=== PATIENT | female | born 1935 | race Caucasian/White ===

== ENCOUNTER 2024-06-10 04:27 | Inpatient (IN) | payer MEDICARE, OTHER, SELFPAY ==
[2024-06-10] VITALS (17 sets, daily range): BP systolic 95–145; BP diastolic 52–86; PULSE 61–65; BMI 22.5; BMI 25.5
--- NOTE | 2024-06-10 02:04 | ED.GENMED ---
History of Present Illness
General
Chief Complaint: Fever
Source: patient, ambulance crew and residential
Exam Limitations: none
Time Seen by Provider: 06/10/24 02:02
Nursing documentation reviewed up to this point in time: agreed with
History of Present Illness
History of Present Illness:
This is an 89-year-old woman, chronic resident of [facility]. She is sent to the ED for evaluation of fever accompanied with urinary frequency, urinary incontinence. Last dose of Tylenol at 7 PM last night.
Nursing staff concerned about mild confusion however patient adamantly denies being confused.
She denies headache, denies neck or back pain, denies abdominal pain, denies cough or shortness of breath, denies chest pain. She does note urinary frequency, dysuria and incontinence which is unusual for her.
She has not had a rash. No falls.
No previous visits to [facility]. She states she has been a resident of [facility] for the past year.
Review of residential records reveals urine culture positive for pansensitive E. coli May 17, 2024. Unclear if she was treated for this UTI. No record of current antibiotic on medication list.
Past History
Past History
ED Past Medical History: CAD, HTN, Hypercholesterolemia, Hypothyroidism and Other (Normal pressure hydrocephalus; UTI)
ED Past Surgical History: Cardiac (Pacemaker) and Orthopedic (Hip replacement)
Phy Exam
Physical Exam
Physical Exam:
GENERAL: 89-year-old woman appears her stated age, awake and alert, pleasant, easily communicative, appears in no acute distress.
EYE: pupils equal and reactive. anicteric
NECK: Supple, nontender, no meningismus, no significant adenopathy.
ENT: oral mucosa is significantly dry. TM clear b/l, nares patent.
CARDIAC: Regular rhythm, mildly tachycardic. no murmur.
LUNGS: Clear breath sounds bilaterally, no acute respiratory distress, no wheezes/rales/rhonchi
ABDOMEN: Soft, nondistended, without focal tenderness, no r/g, no cvat. normoactive BS.
NEUROLOGICAL: Alert and oriented x3, no focal neuro deficits. Motor strength is 5/5 bilaterally.
SKIN: Mildly hot to touch and dry, normal color, skin intact. No rash.
MUSCULOSKELETAL: +1 pretibial edema bilateral lower extremities. Peripheral pulses are full and equal b/l. No palpable tenderness.
PSYCH: Normal and appropriate interaction.
Sepsis
Sepsis Screening
Sepsis Assessment: Sepsis Ruled Out
Sepsis Screen
Sepsis Screen: Sepsis Ruled Out
Date: 06/10/24
Time: 07:04
Course
Orders/Labs/Results
Orders:
Orders
06/10/24 02:02
Cardiac Monitoring- Treatment ONCE
IV Insert/Care/Rem.- Treatment PRN
Straight cath- Treatment ONCE
06/10/24 02:03
0.9% Sodium Chloride 1000 ml [Nss] 1,000 ml IV BOLUS
CR Chest - 2 Views Urgent
Comment:
Reason For Exam: fever
06/10/24 02:09
Complete Blood Count/With Diff Urgent
Comprehensive Metabolic Panel Urgent
Lactic Acid Urgent
Blood Culture Q30M
THA Source: Blood/Venous
Specimen Description:
06/10/24 02:13
Acetaminophen [Tylenol/Feverall] 325 mg RECTAL NOW STA
Acetaminophen [Tylenol/Feverall] 650 mg RECTAL NOW STA
06/10/24 02:20
Urinalysis Reflex To Culture Urgent
Date Specimen was Collected: 06/10/24
Time Specimen was Collected: 02:11
Urine Microscopic Reflex Cult Urgent
Urine Culture Urgent
THA Source: U
Specimen Description:
Date Specimen was Collected: 06/10/24
Time Specimen was Collected: 02:11
06/10/24 02:36
Blood Culture Q30M
THA Source: Blood/Venous
Specimen Description:
06/10/24 03:37
CefTRIAXone [Rocephin] 1,000 mg IV NOW STA
06/10/24 03:47
Add On- LAB Urgent
Tests Added?: CPK
06/10/24 04:02
Admit/Transfer Patient As Directed
Co-Sign Provider:
Level of Care: Inpatient admission
Assign to:: Telemetry
Physician / Group: Zan
Diagnosis: Acute TME, UTI
Reason for Telemetry: Arrhythmia
Date to Stop Telemetry: 06/13/24
Time to Stop Telemetry: 11:00
Reason for Hospitalization: Acute TME, UTI
Expected length of stay greater than two midnights?: Yes
ELOS- Estimated Length of Stay in days: 3
I certify the patient meets the requirements for IP care: Yes
PRN Pain Medication Management As Directed
May give lesser potent ordered pain med per pt: Yes
preference::
Protocol:: Medication orders for pain may be administered in a
manner that supports deferring to patient preference
when the pt is:
- Requesting an ordered lesser potent pain medication.
Least to most potent pain medications are defined
as: acetaminophen < NSAID < tramadol < opioids
(morphine, oxycodone, hydromorphone).
- Requesting a lesser dose of the same medication IF
ORDERED.
- Requesting a less intrusive route of administration
if both routes are prescribed by the provider (PO <
IV).
06/10/24 04:03
Code Status As Directed
Resuscitation Status: Do not resuscitate
Based on pt advanced directive or healthcare POA form: Yes
06/10/24 04:04
DNR Bracelet Application ONCE
06/10/24 04:55
0.9% Sodium Chloride 1000 ml [Nss] 1,000 ml IV 100 mls/hr
Acetaminophen [Tylenol] 650 mg PO Q4HPRN PRN
Polyethylene Glycol Powder [Miralax] 17 grams PO DAILY PRN
06/10/24 04:55
CT Abd/pel Without Iv Or Oral Routine
Comment:
Reason For Exam: Recurrent UTI
Activity As Directed
Activity Level: Ambulate
With Assistance
Bladder Scan As Directed
Follow Bladder Retention/Intermittent Cath Algorithm?: Yes
PRN if no void in __ hours: 6
Frequency: Per Retention Algorithm
If Bladder Scan Result >: 400
then:: Straight cath
I/O [Intake/ Output] As Directed
Frequency: Per unit guidelines
Pneumatic Compression Sleeves As Directed
Type: Knee high
Straight Cath As Directed
Frequency: Per Retention Algorithm
Additional Instructions: straight cath as needed per acute urinary retention algorithm for 24 hrs
Additional Instructions: for bladder scan greater than 400 mL
Vital Signs As Directed
Frequency: Per unit guidelines
Weight As Directed
Frequency: Daily
Oxygen Therapy [O2 Therapy] [RESP] Routine
Titrate/Wean O2 to maintain O2 sat greater than (%): 94
Ot Eval And Treat Routine
PT Consult [Pt Eval And Treat] Routine
Activity Level: Ambulate
With Assistance
DX Deep Vein Thrombosis Video Routine
06/10/24 05:00
Basic Metabolic Panel IN AM
COVID-19 Antigen Urgent
Source: Nasal Swab
Complete Blood Count/No Diff IN AM
LFT [[id number]-[id number]-Fjntqib] IN AM
Influenza A+B Rapid Molecular Urgent
THA Source: Nasal Swab
Specimen Description:
06/10/24 Breakfast
Regular
At Your Request: Full Participation
Levothyroxine [Synthroid] 112 mcg PO DAILY@0600
06/10/24 08:00
Aspirin Chewable [Low Strength Aspirin] 81 mg PO DAILY
Bupropion Regular Release [Wellbutrin Regular Release] 75 mg PO DAILY
FOLic ACID [Folvite] 1 mg PO DAILY
Sennosides [Senokot] 8.6 mg PO DAILY
06/11/24 06:00
CefTRIAXone [Rocephin] 1,000 mg IV Q24H
06/13/24 11:00
DC Protocol for Telemetry ONCE
Abnormal Lab Results
06/10/24 06/10/24 06/10/24
02:07 02:09 02:20
Hct 36.3 L %
(37.0-47.0)
MCV 78.6 L fL
(81.0-99.0)
MCH 26.6 L pg
(27.0-31.0)
RDW 14.7 H %
(11.5-14.5)
Abs Immat Gran (auto) 0.1 H 10^3/uL
(0-0.05)
Absolute Neuts (auto) 7.2 H 10^3/uL
(1.4-6.5)
Absolute Monos (auto) 1.5 H 10^3/uL
(0.1-0.6)
Lymphocytes % 12.0 L %
(20.5-51.1)
Monocytes % 14.6 H %
(1.7-9.3)
BUN 19 H mg/dl
(7-17)
Glucose 109 H mg/dl
(70-99)
AST 253 H U/L
(14-36)
ALT 63 H U/L
(0-35)
Alkaline Phosphatase 128 H U/L
(38-126)
Albumin 3.3 L g/dl
(3.5-5.0)
Ur Occult Blood Reflex 3+ A
(Negative)
Urine Nitrite (Reflex) Positive A
(Negative)
Leukocyte Esterase Rfl 2+ A
(Negative)
Urine WBC (Reflex) >100 A /HPF
(0-5)
Urine Bacteria (Reflex) Many A
(Negative)
Urine Albumin (Reflex) 2+ A
(Neg - Trace)
POC Glucose 105 H mg/dl
(70-99)
06/10/24 02:09
06/10/24 02:09
Vital Signs
Initial and Last Documented VS:
Initial Vital Signs
Pulse Resp BP Pulse Ox
70 16 129/86 94
06/10/24 02:04 06/10/24 02:04 06/10/24 02:04 06/10/24 02:04
Last Documented Vital Signs
Temp Pulse Resp BP Pulse Ox
100.3 F 64 18 95/53 95
06/10/24 03:34 06/10/24 05:45 06/10/24 05:45 06/10/24 05:02 06/10/24 05:45
MDM/Problems Addressed
Differential Diagnosis Includes:
Acute febrile illness. Concern for UTI, sepsis, other consideration is pneumonia.
Will check labs, urinalysis, chest x-ray, blood cultures, lactic acid. Check chest x-ray.
Clinically appears significant dehydrated, dry oral mucosa. Will initiate IV fluids.
*Radiology
Radiology exam reviewed: preliminary read by ED provider (Chest x-ray shows no infiltrate. Scant atelectasis left base)
*Pulse Oximetry
Patient hypoxic: no
*In House Counsel Interpretation
Rate: normal
Interpretation: normal
Rhythm: sinus
*Critical Care Note
Total Time (30-74mins, 75-104mins- exclusive of procedures): Not Applicable
Update Note
Update Note:
06/10/2024 0337 AM
patient noted to be significantly febrile upon arrival. She remains hemodynamically stable. Labs revealed normal white blood cell count. Normal H&H.
Normal lactic acid at 1.2. Normal renal function.
Moderately elevated LFTs, minimally elevated alkaline phosphatase with normal T. bili.
Patient continues to have no abdominal pain, denies back pain.
Urinalysis consistent with UTI, nitrite positive, greater than 100 WBCs and many bacteria.
She has been given rectal Tylenol for fever, IV fluid resuscitation. Will initiate IV Rocephin for UTI.
Due to significant febrile response, concern for SIRS, sepsis will admit to hospitalist service.
ED Attending Note
-
Portions of this chart may have been created with voice recognition software.� Occasional wrong word or��sound alike� substitutions may have occurred due to the inherent limitations of voice recognition software.
Discharge Plan
Departure
Patient Disposition: Admit
Date of Disposition: 06/10/24
Time of Disposition: 03:42
Admit to: Med/Surg
Admit to doctor: Zan
Presentation/result/management discussed w/ accepting MD/DO: Hospitalist
Condition: Fair
Discharge Problem:
fever r/o sepsis, SIRS (systemic inflammatory response syndrome), Urinary tract infection
Interventions
Interventions:
*Risk Screen - Suicide Last Done: 06/10/24 02:04
*General Assessment Last Done: 06/10/24 02:04
*Neglect/Abuse Screening Last Done: 06/10/24 02:04
ED- Fall Risk Assessment Last Done: 06/10/24 02:04
*ED COVID-19 Vaccine History Last Done: 06/10/24 02:04
ED-Female Genitourinary Assessment Last Done: 06/10/24 02:22
ED- Neurological Assessment Last Done: 06/10/24 02:22
ED-Skin Assessment Last Done: 06/10/24 02:22
[2024-06-10 02:09] LABS: Glucose - Point of Care 105 mg/dl (70-99)
[2024-06-10] MEDS: TYLENOL/FEVERALL 325 MG RECTAL (02:15)
[2024-06-10] MEDS: TYLENOL/FEVERALL 650 MG RECTAL (02:16)
[2024-06-10 02:18] LABS: % Basophils 0.3 % (0-2); % Eosinophils 0.1 % (0-6); % Immature Granulocytes 0.5 % (0-0.5); % Monocytes 14.6 % (1.7-9.3); % Neutrophils 72.5 % (42.2-75.2); Absolute Immature Granulocytes 0.1 10^3/uL (0-0.05); Absolute Lymphocytes 1.2 10^3/uL (1.2-3.4); Absolute Monocytes 1.5 10^3/uL (0.1-0.6); Absolute Neutrophils 7.2 10^3/uL (1.4-6.5); Hematocrit 36.3 % (37.0-47.0); Hemoglobin 12.3 g/dL (12.0-16.0); Mean Corp Hgb Conc. 33.9 g/dL (33.0-37.0); Mean Corpuscular Hgb 26.6 pg (27.0-31.0); Mean Corpuscular Volume 78.6 fL (81.0-99.0); Mean Platelet Volume 9.7 fL (7.4-10.4); Nucleated Red Blood Cells % 0 %; Platelet Count 178 10^3/uL (130-400); Red Blood Cell Count 4.62 10^6/uL (4.20-5.40); Red Cell Dist. Width 14.7 % (11.5-14.5); White Blood Cell Count 9.9 10^3/uL (4.8-10.8)
[2024-06-10] MEDS: NSS 1000 IV ×4 (02:18→14:21)
[2024-06-10 02:32] LABS: Urine Albumin 2+ (Neg - Trace); Urine Bilirubin Negative (Negative); Urine Color Yellow; Urine Glucose Negative (Negative); Urine Ketone Negative (Negative); Urine Leukocyte 2+ (Negative); Urine Nitrite Positive (Negative); Urine Occult Blood 3+ (Negative); Urine Specific Gravity 1.015 (<1.030); Urine Urobilinogen Negative (Neg - 1+)
[2024-06-10 02:33] LABS: Urine Character Very Cloudy (Clear)
[2024-06-10 02:37] LABS: ALT (SGPT) 63 U/L (0-35); AST (SGOT) 253 U/L (14-36); Albumin 3.3 g/dl (3.5-5.0); Alkaline Phosphatase 128 U/L (38-126); Blood Urea Nitrogen 19 mg/dl (7-17); Calcium 8.6 mg/dl (8.4-10.2); Carbon Dioxide 23 mmol/L (22-30); Chloride 100 mmol/L (98-107); Estimated Creatinine Clearance 37 ml/min; Glucose 109 mg/dl (70-99); Potassium 4.1 mmol/L (3.5-5.1); Sodium 135 mmol/L (135-145); Total Protein 6.3 g/dl (6.3-8.2); eGFR 53.85
[2024-06-10 02:41] LABS: Urine Bacteria Many (Negative); Urine White Cell >100 /HPF (0-5)
[2024-06-10 02:42] LABS: Lactic Acid 1.2 mmol/L (0.7-2.0)
--- NOTE | 2024-06-10 04:06 | HPS.HSE ---
Family Physician
-
Family Physician: Ubaldo Aguilar
Chief Complaint
-
Confusion, Fever
History of Present Illness
Patient is an 89y F with PMH significant for hypertension, hypothyroidism and overactive bladder who presents to ED from local [place] for evaluation of fever, urinary incontinence and confusion. History obtained from patient, ED staff and review of
[facility] record. Patient was reportedly noted by [facility] staff to be confused this evening - typically she is AA and O x 3. Recent labs from [place] include UA and culture dated 05/24 which was positive for E coli UTI. There are no current antibiotics on her MAR
- though it is likely that she was treated for this result at that time.
On arrival to the ED, patient was noted to have fever to 103.9. She was reportedly not confused for ED staff at that time.
At the time of my examination, patient is sleeping comfortable.
Upon waking from sleep, she was alert and conversant, but was unable to recall events which led to her hospitalization.
Patient admits to urinary frequency and dysuria - but states that these are chronic issues.
She denies any new complaints including pain, dyspnea, cough, N/V/D, etc.
Medical History
Past Medical History
Past Medical History: Reports Other
Additional Past Medical History:
ASCVD
CHF - Unknown Type
Hypertension
Hypothyroidism
NPH
Overactive Bladder
Anxiety / Depression
Past Surgical History: Reports Other
Additional Past Surgical History:
Left JOSE R
PPM Placement
Social History
Tobacco: Former Smoker (Quit smoking many years ago.)
Alcohol: None
Drug: None
Family History
Family History: Not pertinent
Allergies / Home Medications
Allergies reflects when Allergies were last updated in [facility].
Home Medications with original date entered in [facility]
Allergy/Medication List:
Allergies
Allergy/AdvReac Type Severity Reaction Status Date / Time
No Known Allergies Allergy Unverified 06/10/24 02:03
Home Medications
acetaminophen 325 mg tablet (Tylenol) 650 mg PO Q4H PRN fever 06/10/24
aspirin 81 mg chewable tablet 81 mg PO DAILY 06/10/24
bisacodyl 10 mg rectal suppository 10 mg [place] DAILY PRN constipation 06/10/24
bupropion HCl 75 mg tablet 75 mg PO DAILY 06/10/24
cyanocobalamin (vitamin B-12) 100 mcg/mL injection syringe 1,000 mcg MONTHLY 06/10/24
folic acid 1 mg tablet 1 mg PO DAILY 06/10/24
furosemide 40 mg tablet (Lasix) 40 mg PO DAILY 06/10/24
glucosamine-chondroitin 500 mg-400 mg tablet 1 tab PO DAILY 06/10/24
levothyroxine 112 mcg tablet (Synthroid) 112 mcg PO DAILY 06/10/24
losartan 25 mg tablet (Cozaar) 25 mg PO DAILY 06/10/24
magnesium hydroxide 400 mg/5 mL oral suspension (Milk of Magnesia) 400 mg PO DAILY PRN constipation 06/10/24
multivitamin 1 tab PO DAILY 06/10/24
oxybutynin chloride 10 mg tablet,extended release 24 hr 10 mg PO DAILY 06/10/24
polyethylene glycol 3350 17 gram oral powder packet (Miralax) 17 g PO DAILY 06/10/24
sennosides 8.6 mg tablet (senna) 8.6 mg PO DAILY 06/10/24
Review of Systems
-
History Source: Patient
A 12 point ROS was completed and negative except as noted: Yes
Constitutional: Reports Fatigue
EENT: Denies Sore Throat
Respiratory: Denies Cough or Trouble Breathing
Cardiac: Denies Chest Pain or Palpitations
Abdomen/GI: Denies Abdominal Pain, Nausea, Vomiting or Diarrhea
: Reports Dysuria, Frequency, Incontinence and Urgency; Denies Bleeding
Musculoskeletal: Denies Joint Pain or Edema
Neurological: Denies Dizzy or Headache
Psych: Denies Depression or Anxiety
Physical Exam
Vital Signs
Vital Signs
Temp Pulse Resp BP Pulse Ox
100.3 F 67 21 103/56 91
06/10/24 03:34 06/10/24 03:30 06/10/24 03:30 06/10/24 03:30 06/10/24 03:30
Physical Exam
General: Other (89y F in no acute distress.)
HEENT: Moist mucous membranes and PERRLA
Respiratory: Clear; No Wheezes, Rales or Rhonchi
Cardiac: S1/S2 and Regular Rhythm; No Murmur
GI: Soft, Non Tender, Non Distended and Normal Bowel Sounds
Musculoskeletal: No Clubbing, No Cyanosis and Other (Trace LE edema)
Neuro: Awake, Alert and Nonfocal/grossly intact
Psych: No Agitated
Laboratory Results
-
06/10/24 02:09
06/10/24 02:09
Laboratory Results
Lactic Acid 1.2 mmol/L (0.7-2.0) 06/10/24 02:09
Total Bilirubin 1.0 mg/dl (0.2-1.3) 06/10/24 02:09
AST 253 U/L (14-36) H 06/10/24 02:09
ALT 63 U/L (0-35) H 06/10/24 02:09
Alkaline Phosphatase 128 U/L (38-126) H 06/10/24 02:09
Impression/Plan
-
A/P: Patient is an 89y F with PMH significant for hypertension and hypothyroidism who presents to ED from local [place] for evaluation of urinary incontinence, fever and confusion.
UTI / Fever
- Admit for further evaluation and treatment.
- Patient presents with fever to 103.9 and UA suggestive of infection.
- She does endorse urinary complaints - but has documented history of OAB and tells me that complaints are chronic.
- Would check other sources (COVID, Flu, etc) for completeness.
- IV ceftriaxone for now pending culture data.
- Check CT for evidence of stone, etc given recent / recurrent infection (E coli UTI on 05/24/24).
- Follow for clinical improvement.
Acute TME
- Likely secondary to acute febrile illness (see below).
- NH staff report is that patient is typically fully oriented.
- Follow for clinical improvement coincident with treatment of infection, etc.
Abnormal LFTs
- Patient with abnormal LFTs in AST >> ALT pattern.
- Check CPK for evidence of muscle breakdown.
- Follow for changes in labs, new symptoms, etc.
- CT A/P as noted above.
ASCVD
Chronic HF - Unknown Type
- Stable. No chest pain, dyspnea, etc.
- Patient does not appear grossly volume overloaded.
- Hold Lasix for now.
- Gentle IVFs overnight.
- Follow I/Os, weights, etc.
- Continue ASA.
Benign Hypertension
- BP marginal in the ED.
- Will hold losartan (and Lasix) acutely.
- Follow for changes and resume usual meds when appropriate.
Hypothyroidism
- Continue current T4 supplementation.
OAB
- Hold oxybutynin.
DVT Prophylaxis: SCDs
Code Status: DNR
[2024-06-10] MEDS: ROCEPHIN 1000 MG IV (04:52)
[2024-06-10 05:09] LABS: Hematocrit 33.2 % (37.0-47.0); Hemoglobin 11.3 g/dL (12.0-16.0); Mean Corpuscular Volume 79.4 fL (81.0-99.0); Mean Platelet Volume 9.7 fL (7.4-10.4); Platelet Count 154 10^3/uL (130-400); Red Blood Cell Count 4.18 10^6/uL (4.20-5.40); Red Cell Dist. Width 14.6 % (11.5-14.5); White Blood Cell Count 8.8 10^3/uL (4.8-10.8)
[2024-06-10 05:27] LABS: ALT (SGPT) 56 U/L (0-35); AST (SGOT) 198 U/L (14-36); Albumin 2.7 g/dl (3.5-5.0); Alkaline Phosphatase 115 U/L (38-126); Blood Urea Nitrogen 18 mg/dl (7-17); Calcium 8.1 mg/dl (8.4-10.2); Carbon Dioxide 21 mmol/L (22-30); Chloride 104 mmol/L (98-107); Direct Bilirubin 0.3 mg/dl (0.0-0.4); Estimated Creatinine Clearance 41 ml/min; Glucose 107 mg/dl (70-99); Potassium 3.5 mmol/L (3.5-5.1); Sodium 136 mmol/L (135-145); Total Bilirubin 0.6 mg/dl (0.2-1.3); Total Protein 5.5 g/dl (6.3-8.2); eGFR > 60.00
[2024-06-10 05:30] LABS: COVID-19 Antigen Negative (Negative)
[2024-06-10] MEDS: SYNTHROID 112 MCG PO (05:41)
[2024-06-10] MEDS: SENOKOT 8.6 MG PO (07:54)
[2024-06-10] MEDS: FOLVITE 1 MG PO (07:54)
[2024-06-10] MEDS: LOW STRENGTH ASPIRIN 81 MG PO (07:54)
[2024-06-10] MEDS: TYLENOL 650 MG PO (07:57)
[2024-06-10 08:04] LABS: Creatine Phosphokinase 7881 U/L (30-135)
[2024-06-10] MEDS: WELLBUTRIN REGULAR RELEASE 75 MG PO (10:32)
--- NOTE | 2024-06-10 13:15 | W.PN.HOSP.TC ---
Today's Communication/Plan
-
Continue antibiotics
Await cultures
IV fluids
Trend CPK
PT/OT
Assessment / Plan
Assessment / Plan
Gen-AAOx3, NAD
HEENT-NC, AT, anicteric, clear oral mm
Neck-supple
CV-reg, no M, +S1/S2
Lungs-clear B/L
Abd-soft, NT, ND
Ext-no edema
Musculoskeletal-no cyanosis, clubbing
Skin-warm and dry
Neuro-grossly non-focal
Psych-calm, cooperative
UTI -appears uncomplicated. Fever resolved. WBC count normal. CT reviewed, no stones. Continue IV ceftriaxone pending culture results.
Patient admits to frequent UTIs. Recommend outpatient urology follow-up.
Acute TME - Likely secondary to acute febrile illness (see below).
- NH staff report is that patient is typically fully oriented. No signs of confusion currently.
Elevated transaminases -check GGT.
Acute nontraumatic rhabdomyolysis -CPK 7881. IV fluids, repeat labs tomorrow. Etiology possibly due to limited mobility.
ASCVD
Chronic HF - Unknown Type. Looks euvolemic. Lasix held on admission due to hypotension. Can likely resume tomorrow.
Essential hypertension
- BP marginal in the ED.
- Will hold losartan (and Lasix) acutely.
- Follow for changes and resume usual meds when appropriate.
Hypothyroidism -continue levothyroxine.
OAB - Hold oxybutynin in setting of UTI.
DVT Prophylaxis: SCDs
Code Status: DNR
Dispo -discharge back to alf when medically stable.
Anticipated Discharge: 24 - 48 hours
Subjective/Interval History
-
Date of Service: June 10, 2024
Patient seen and examined. No complaints currently.
Objective Data
-
Labs:
Laboratory Results
06/10/24 06/10/24
02:09 05:00
WBC 9.9 8.8
Hgb 12.3 11.3 L
Hct 36.3 L 33.2 L
Plt Count 178 154
Sodium 135 136
Potassium 4.1 3.5
Chloride 100 104
Carbon Dioxide 23 21 L
BUN 19 H 18 H
Creatinine 1.0 0.9
Glucose 109 H 107 H
Calcium 8.6 8.1 L
Total Bilirubin 1.0 0.6
AST 253 H 198 H
ALT 63 H 56 H
Alkaline Phosphatase 128 H 115
Vital Signs:
Vital Signs
Temp Pulse Resp BP Pulse Ox
97.8 F 64 18 114/60 98
06/10/24 13:08 06/10/24 13:08 06/10/24 13:08 06/10/24 13:08 06/10/24 13:08
Review of Systems
-
History Source: Patient
All other systems: Reviewed and negative
[2024-06-10] MEDS: KCL 20 MEQ PO (13:53)
[2024-06-10 13:58] LABS: GGTP 37 U/L (12-43)
--- NOTE | 2024-06-10 17:54 | PTCARENOTE ---
Received patient awake and alert, forgetful. Insisted her eyeglasses were lost, I called the assisted and was told they were in her room at the facility. Out of bed max assist 2 to bed side commode. No c/o pain . Able to move herself around
in the bed. Skin intact. Call gar in reach , appetite 100%
[2024-06-11] MEDS: NSS 1000 IV (02:04)
[2024-06-11 03:36] VITALS: BP 139/71
[2024-06-11] MEDS: SYNTHROID 112 MCG PO (05:06)
[2024-06-11] MEDS: ROCEPHIN 1000 MG IV (05:07)
[2024-06-11] MEDS: STERILE WATER FOR INJECTION 10 ML IV (05:09)
[2024-06-11 05:47] VITALS: BMI 25.0
[2024-06-11 07:03] LABS: ALT (SGPT) 58 U/L (0-35); AST (SGOT) 136 U/L (14-36); Albumin 2.6 g/dl (3.5-5.0); Alkaline Phosphatase 123 U/L (38-126); Blood Urea Nitrogen 12 mg/dl (7-17); Calcium 8.1 mg/dl (8.4-10.2); Carbon Dioxide 21 mmol/L (22-30); Chloride 106 mmol/L (98-107); Estimated Creatinine Clearance 50 ml/min; Glucose 92 mg/dl (70-99); Potassium 4.1 mmol/L (3.5-5.1); Sodium 136 mmol/L (135-145); Total Bilirubin 0.3 mg/dl (0.2-1.3); Total Protein 5.3 g/dl (6.3-8.2); eGFR > 60.00
[2024-06-11 07:12] LABS: Creatine Phosphokinase 2751 U/L (30-135)
[2024-06-11 07:59] VITALS: BP 127/63
[2024-06-11] MEDS: WELLBUTRIN REGULAR RELEASE 75 MG PO (08:36)
[2024-06-11] MEDS: LOW STRENGTH ASPIRIN 81 MG PO (08:36)
[2024-06-11] MEDS: LASIX 40 MG PO (08:36)
[2024-06-11] MEDS: SENOKOT PO (08:37)
[2024-06-11] MEDS: KCL 20 MEQ PO (08:37)
[2024-06-11] MEDS: FOLVITE 1 MG PO (08:38)
--- NOTE | 2024-06-11 10:41 | W.PN.HOSP.TC ---
Today's Communication/Plan
-
Continue antibiotics
Await cultures
Assessment / Plan
Assessment / Plan
Gen-AAOx3, NAD
HEENT-NC, AT, anicteric, clear oral mm
Neck-supple
CV-reg, no M, +S1/S2
Lungs-clear B/L
Abd-soft, NT, ND
Ext-no edema
Musculoskeletal-no cyanosis, clubbing
Skin-warm and dry
Neuro-grossly non-focal
Psych-calm, cooperative
UTI with bacteremia - Fever resolved. WBC count normal. CT reviewed, no stones. 1 out of 2 blood cultures noted to have gram-negative bacilli. Urine culture pending. Continue IV ceftriaxone pending final culture results.
Patient admits to frequent UTIs. Recommend outpatient urology follow-up.
Acute TME - Likely secondary to acute febrile illness (see below).
- [facility] staff report is that patient is typically fully oriented. No signs of confusion currently.
Elevated transaminases -likely due to rhabdomyolysis. GGT normal. Transaminases trending down.
Acute nontraumatic rhabdomyolysis -CPK trending down. Etiology possibly due to limited mobility. Nursing reports good oral fluid intake, can stop further IV fluids. Recheck CPK in the morning.
ASCVD
Chronic HF - Unknown Type. Looks euvolemic. Lasix resumed.
Essential hypertension -blood pressure low on admission, now improved. Losartan on hold.
Hypothyroidism -continue levothyroxine.
OAB - Hold oxybutynin in setting of UTI.
DVT Prophylaxis: SCDs
Code Status: DNR
Dispo -discharge back to group home when medically stable.
Anticipated Discharge: 24 - 48 hours
Subjective/Interval History
-
Date of Service: June 11, 2024
Patient seen and examined. Feeling better. No complaints. Mild diarrhea.
Objective Data
-
Labs:
Laboratory Results
06/11/24
05:55
Sodium 136
Potassium 4.1
Chloride 106
Carbon Dioxide 21 L
BUN 12
Creatinine 0.7
Glucose 92
Calcium 8.1 L
Total Bilirubin 0.3
AST 136 H
ALT 58 H
Alkaline Phosphatase 123
Vital Signs:
Vital Signs
Temp Pulse Resp BP Pulse Ox
98.6 F 64 18 127/63 96
06/11/24 07:59 06/11/24 07:59 06/11/24 07:59 06/11/24 07:59 06/11/24 07:59
I&O
06/10/24 06/11/24 06/12/24
06:59 06:59 06:59
Intake Total 1999
Balance 1999
Review of Systems
-
History Source: Patient
All other systems: Reviewed and negative
[2024-06-11 11:05] VITALS: BP 117/64
--- NOTE | 2024-06-11 12:39 | CM ---
visual display manager reviewed patient's chart and met with patient and patient resides at [facility], patient requires assist with adl's and used a walker with ambulation, patient's plan is to return to [facility] when stable.
PCP: Dr. Aguilar
[facility]
Report [phone]

Plan; Patient to return to [facility] when stable.
[2024-06-11 15:23] VITALS: BP 133/60
[2024-06-11 19:52] VITALS: BP 113/59
[2024-06-11 23:30] VITALS: BP 135/76
[2024-06-12] MEDS: ROBITUSSIN DM 5 ML PO (00:24)
[2024-06-12 03:21] VITALS: BP 139/67
[2024-06-12] MEDS: ROCEPHIN 1000 MG IV (05:41)
[2024-06-12] MEDS: SYNTHROID 112 MCG PO (05:41)
[2024-06-12] MEDS: STERILE WATER FOR INJECTION 10 ML IV (05:41)
[2024-06-12 05:49] VITALS: BMI 24.7
[2024-06-12 06:00] VITALS: BMI 24.7
[2024-06-12 07:40] VITALS: BP 151/88
[2024-06-12] MEDS: WELLBUTRIN REGULAR RELEASE 75 MG PO (08:34)
[2024-06-12] MEDS: LOW STRENGTH ASPIRIN 81 MG PO (08:35)
[2024-06-12] MEDS: LASIX 40 MG PO (08:35)
[2024-06-12] MEDS: FOLVITE 1 MG PO (08:35)
[2024-06-12] MEDS: KCL 20 MEQ PO (08:35)
[2024-06-12] MEDS: SENOKOT 8.6 MG PO (08:35)
[2024-06-12 09:21] LABS: Creatine Phosphokinase 703 U/L (30-135)
[2024-06-12 11:15] VITALS: BP 126/68
--- NOTE | 2024-06-12 12:17 | W.PN.HOSP.TC ---
Addendum entered and electronically signed by Asif Xiong MD 06/12/24 16:32:
sepsis secondary to UTI/pyelo
Original Note:
Today's Communication/Plan
-
DC to [facility] when bed available
Assessment / Plan
Assessment / Plan
Physical Exam
NAD, sitting in bedside chair, just finished brushing
Scleral anicteric
Moist mucous membranes
CTA bilateral
Normal S1-S2 no murmurs
Soft nontender nondistended bowel sounds active
No peripheral pitting edema
Moves extremities spontaneously
AAOx3
Assessment and Plan
E. coli bacteremia secondary to UTI
-On Rocephin which is sensitive to cefazolin which is a first generation cephalosporin. Sensitive to Augmentin therefore we will plan to discharge home on 10-day course to complete a total of 13 to 14 days of antibiotics altogether
-Will need outpatient urology follow-up
Rhabdo
-CK downtrendning
-Without symptoms of muscle pain/myalgias
Acute TME
-Resovled
HTN
-Continue antihypertensives
Transaminitis
-Related to rhabdo
-Improving as expected
DCT ppx
-SCX
DC to [facility].
Anticipated Discharge: Within 24 hours
Subjective/Interval History
-
Date of Service: June 12, 2024
seen and examined. no new complaints. no acute overnight events
sitting in bedside chair
Objective Data
-
Vital Signs:
Vital Signs
Temp Pulse Resp BP Pulse Ox
97.7 F 62 16 126/68 95
06/12/24 11:15 06/12/24 11:15 06/12/24 11:15 06/12/24 11:15 06/12/24 11:15
I&O
06/11/24 06/12/24 06/13/24
06:59 06:59 06:59
Intake Total 1999
Balance 1999
--- NOTE | 2024-06-12 12:27 | W.DCSUMMARY ---
Discharge Summary
Discharge Data
Date of Admission: 06/10/24
Date of Discharge: 06/12/24
-
Pending Results: No
Hospital Course
89y F with PMH significant for hypertension, hypothyroidism and overactive bladder presented from [facility] with fever urinary continence and confusion. Found to have a coli UTI that led to bacteremia. Was started on
antibiotics narrowed to Rocephin and discharged on Augmentin per urine sensitivities. Will need outpatient urology follow-up.
Discharge Plan
-
Patient Disposition: Long-Term/SNF
Discharge Diagnosis/Procedures: E. coli UTI complicated by bacteremia
Past medical history hypertension, hypothyroidism, overactive bladder
Condition: Good
Diet: No restrictions
Activity: With assistance and As tolerated
Additional Activity: With wheelchair
Moderate medical assistant cardiology
Driving Restrictions: No driving
Activity Restrictions/Additional Instructions:
CTAP
IMPRESSION:
No hydronephrosis. No renal calculi.
The urinary bladder is mildly distended.
Moderate rectal and colonic stool burden.
Fat-containing right inguinal hernia.
Referrals:
Ubaldo Aguilar DO [Family Provider] -
Augustine Yeager Jr., MD [Active] - in two to three weeks
Prescriptions:
New
amoxicillin-pot clavulanate [Augmentin] 500-125 mg tablet
1 tab PO BID 10 Days Qty: 20 0RF
Continued
multivitamin Tablet
1 tab PO DAILY
furosemide [Lasix] 40 mg Tablet
40 mg PO DAILY
sennosides [senna] 8.6 mg Tablet
17.2 mg PO DAILY
acetaminophen [Tylenol] 325 mg Tablet
650 mg PO Q4HPRN PRN (Reason: mild pain/temp>100)
polyethylene glycol 3350 [Miralax] 17 gram Powder In Packet
17 g PO DAILY
oxybutynin chloride 10 mg Tablet Extended Release 24hr
10 mg PO DAILY
magnesium hydroxide [Milk of Magnesia] 400 mg/5 mL Suspension
30 ml PO HSPRN PRN (Reason: if no bm in 3 days)
bisacodyl 10 mg Suppository
10 mg OR DAILYPRN PRN (Reason: if no results for MOM)
losartan [Cozaar] 25 mg Tablet
25 mg PO DAILY
bupropion HCl 75 mg Tablet
75 mg PO DAILY
aspirin 81 mg Tablet,Chewable
81 mg PO DAILY
folic acid 1 mg Tablet
1 mg PO DAILY
glucosamine-chondroitin 500-400 mg Tablet
1 tab PO DAILY
levothyroxine [Synthroid] 112 mcg Tablet
112 mcg PO DAILY
cyanocobalamin (vitamin B-12) 1,000 mcg/mL solution
1,000 mcg IM MONTHLY
Rx Instructions:
inject 1 dose IM monthly on the 16th of each month
diclofenac sodium [Arthritis Pain (diclofenac)] 1 % Gel
1 ea TOPICAL BID
Discharge Orders:
Discharge Patient (As Directed); Ordered 06/12/24
Ordered By: Asif Xiong
Discharge Date and Time
Print Language: MONGOLIAN
--- NOTE | 2024-06-12 12:54 | CM ---
Pt medically stable to d/c back to [facility] care at [facility] today
CM attempted call to Kyar/[facility] to inform, left vm and text message
Attempted call to pt's niece to inform of d/c, left vm
Ambulance transport arranged for 4:30 pm
IMM reviewed, pt given copy. Copy placed in chart
Per PT/OT, no skilled needs. Would benefit from home PT
[facility]-LTC
Report: [phone]

Plan: Return to [facility] via ambulance
[2024-06-12 15:00] VITALS: BP 137/66
--- NOTE | 2024-06-12 16:01 | PN.CDI ---
CDI
- -
CDI:
Physician Documentation Request
Admit Date: 06/10/24 04:27
Dear Doctor Tyrese,
Clinical Indicators:
Patient admitted with UTI; presented with TME.
06/12 PN, 'E. coli bacteremia secondary to UTI'
Temp on admission:
06/10/24
02:11
Temp 103.9 F H
RR trend on admission:
06/10/24
02:45 06/10/24
03:00 06/10/24
03:45
Resp Rate 21 25 22
06/10/24
04:00 06/10/24
04:30 06/10/24
05:30
Resp Rate 30 23 31
Please clarify which of the following most accurately describes the status of the patient's infection:
Sepsis, POA
- Systemic manifestations of infection, with 2 or more SIRS criteria which include:
- Fever >100.4 degrees F or hypothermia < 96.8 degrees F
- Leukocytosis - WBC > 12,000 or leukopenia - WBC < 4,000 or > 10% bands
- Tachycardia > 90 beats per minute
- Tachypnea - RR > 20 breaths per minute or PaCO2 , 32mmHg
Source: Merck Manual 2013
Severe Sepsis, POA
- Sepsis with associated acute organ dysfunction, such as TME
- Documentation should indicate the association between the sepsis and the organ dysfunction
UTI with Bacteremia only
- Abnormal lab finding only, does not indicate systemic illness
Other, please specify
Use of terms such as suspected, likely, concern for, or probable (associated with a specific diagnosis that is being evaluated, monitored, or treated as if it exists) are acceptable and can be coded in the inpatient setting, when documented at the
time of discharge.
Thank you,
Neda Verdugo RN BSN
CDI Specialist
available via tiger text
Please use your independent medical judgment in providing your response.
== END 2024-06-12 17:43 | DRG 871 ==
LOC: 4 WEST ACU 04:27
PROVIDERS: Hospitalist; ADMITTING PHYSICIAN Hospitalist; ATTENDING PHYSICIAN Hospitalist; EMERGENCY PHYSICIAN Emergency Medicine; FAMILY PHYSICIAN Internal Medicine
DX: A41.51 Sepsis due to Escherichia coli [E. coli] (principal); G92.8 Other toxic encephalopathy; N39.0 Urinary tract infection, site not specified; G91.2 (Idiopathic) normal pressure hydrocephalus; M62.82 Rhabdomyolysis; E03.9 Hypothyroidism, unspecified; N32.81 Overactive bladder; I11.0 Hypertensive heart disease with heart failure; I50.9 Heart failure, unspecified; I25.10 Atherosclerotic heart disease of native coronary artery without angina pectoris; F32.A Depression, unspecified; F41.9 Anxiety disorder, unspecified; Z87.891 Personal history of nicotine dependence; Z79.82 Long term (current) use of aspirin; Z66 Do not resuscitate; K40.90 Unilateral inguinal hernia, without obstruction or gangrene, not specified as recurrent; Z79.890 Hormone replacement therapy; M19.90 Unspecified osteoarthritis, unspecified site; E78.00 Pure hypercholesterolemia, unspecified; Z87.440 Personal history of urinary (tract) infections; Z95.0 Presence of cardiac pacemaker; Z96.649 Presence of unspecified artificial hip joint; Z11.52 Encounter for screening for COVID-19
CPT/HCPCS: 71046; 74176; 80048; 80053; 80076; 81003; 81015; 82550; 82962; 82977; 83605; 85025; 85027; 87040; 87077; 87086; 87149; 87186; 87205; 87502; 87811; 96361; 96374; 99285

== ENCOUNTER 2024-08-04 10:43 | Inpatient (IN) | payer MEDICARE, OTHER, SELFPAY ==
[2024-08-04] VITALS (14 sets, daily range): BP systolic 94–132; BP diastolic 52–104; PULSE 65; O2SAT 92; BMI 25.8; BMI 22.1
[2024-08-04 07:34] LABS: % Basophils 0.2 % (0-2); % Eosinophils 2.7 % (0-6); % Immature Granulocytes 0.9 % (0-0.5); % Lymphocytes 8.9 % (20.5-51.1); % Monocytes 7.6 % (1.7-9.3); % Neutrophils 79.7 % (42.2-75.2); Absolute Eosinophils 0.2 10^3/uL (0-0.7); Absolute Immature Granulocytes 0.1 10^3/uL (0-0.05); Absolute Lymphocytes 0.5 10^3/uL (1.2-3.4); Absolute Monocytes 0.4 10^3/uL (0.1-0.6); Absolute Neutrophils 4.4 10^3/uL (1.4-6.5); Hematocrit 35.4 % (37.0-47.0); Hemoglobin 11.9 g/dL (12.0-16.0); Mean Corp Hgb Conc. 33.6 g/dL (33.0-37.0); Mean Corpuscular Hgb 26.7 pg (27.0-31.0); Mean Corpuscular Volume 79.4 fL (81.0-99.0); Mean Platelet Volume 10.1 fL (7.4-10.4); Nucleated Red Blood Cells % 0 %; Platelet Count 144 10^3/uL (130-400); Red Blood Cell Count 4.46 10^6/uL (4.20-5.40); Red Cell Dist. Width 15.7 % (11.5-14.5); White Blood Cell Count 5.5 10^3/uL (4.8-10.8)
[2024-08-04 07:47] LABS: ALT (SGPT) 12 U/L (0-35); AST (SGOT) 24 U/L (14-36); Albumin 3.4 g/dl (3.5-5.0); Alkaline Phosphatase 97 U/L (38-126); Blood Urea Nitrogen 13 mg/dl (7-17); Calcium 8.5 mg/dl (8.4-10.2); Carbon Dioxide 20 mmol/L (22-30); Chloride 102 mmol/L (98-107); Estimated Creatinine Clearance 25 ml/min; Glucose 94 mg/dl (70-99); Lactic Acid 0.9 mmol/L (0.7-2.0); Potassium 4.2 mmol/L (3.5-5.1); Sodium 133 mmol/L (135-145); Total Bilirubin 0.3 mg/dl (0.2-1.3); Total Protein 6.2 g/dl (6.3-8.2); eGFR 43.27
[2024-08-04 07:51] LABS: COVID-19 Antigen Negative (Negative)
[2024-08-04] MEDS: NSS 1000 IV (08:06)
--- NOTE | 2024-08-04 08:09 | ED.GENMED ---
History of Present Illness
General
Chief Complaint: Fall
Source: patient, longterm and longterm records
Time Seen by Provider: 08/04/24 07:38
History of Present Illness
History of Present Illness:
pt is a 89 y/o F with h/o CHF, CAD, HTN, HLD, pacer
says she had mechanical slip and fall out of bed this morning x 2
she says she wasn't injured and wasn't on the ground long, 'just a few minutes.' this morning
she was helped back up by staff and then fell again
she was found to be febrile at 530 am and was given tylenol. she has no pain. she has been coughing which is new the past ew days.
also on bactri since 07/30 for ESBL urine and enterococcus
no back pain, vomiting, headache, neck pain, confusion, abdominal pain.
per assistant chief nursing officer, pt slid out of bed twcie which is unike her; 1 time they were rounding and saw her and the 2nd time her roommate came out to notify someone
they siad she is more weak than normal
no one suspects she hit her head but it was unclear
Past History
Past History
ED Past Medical History: CAD, HTN, Hypercholesterolemia, Hypothyroidism and Other (Normal pressure hydrocephalus; UTI)
ED Past Surgical History: Cardiac (Pacemaker) and Orthopedic (Hip replacement)
Review of Systems
Review of Systems
Allergies reviewed?: Yes
All Other Systems: Not applicable
Phy Exam
Physical Exam
Physical Exam:
GENERAL: Alert, comfortable, no distress
Neck: supple
CARDIAC: Regular rate and rhythm .
pacemaker
LUNGS: Clear breath sounds bilaterally, no acute respiratory distress, no wheezes/rales/rhonchi; occ cough
ABDOMEN: Soft nontender, normal bowel sounds; nondistended;
no CVAT tenderness
NEUROLOGICAL: Alert and oriented, no focal neuro deficits, cn intact, moving all extremiteis;
msk: no obvious injuries from her falls
SKIN: Warm and dry, skin intact.
PSYCH: Normal and appropriate interaction.
Course
Orders/Labs/Results
Orders:
Orders
08/04/24 07:02
Straight cath- Treatment ONCE
08/04/24 07:03
CR Chest - 2 Views Urgent
Comment:
Reason For Exam: suspected infection
08/04/24 07:17
COVID-19 Antigen Urgent
Source: Nasal Swab
Complete Blood Count/With Diff Urgent
Comprehensive Metabolic Panel Urgent
Lactic Acid Q4H
Comment: ON ICE, CANCEL 2ND ORDER IF FIRST LACTIC ACID LEVEL <2
Urinalysis Reflex To Culture Urgent
Date Specimen was Collected: 08/04/24
Time Specimen was Collected: 07:04
Urine Microscopic Reflex Cult Urgent
INF RAPID [Influenza A+B Rapid Molecular] Urgent
THA Source: Nasal Swab
Specimen Description:
Urine Culture Urgent
THA Source: U
Specimen Description:
Date Specimen was Collected: 08/04/24
Time Specimen was Collected: 07:04
08/04/24 07:55
0.9% Sodium Chloride 1000 ml [Nss] 1,000 ml IV BOLUS
08/04/24 08:08
NT-proBNP Urgent
Blood Culture Urgent
THA Source: Blood/Venous
Specimen Description:
08/04/24 08:54
CT Head W/o Iv Contrast Urgent
Comment:
Reason For Exam: FALL X 2
08/04/24 09:31
Piperacillin/Tazo 3.375 Gram [Zosyn] 3.375 gram in 50 ml IV NOW
08/04/24 10:07
CT Abd/pelvis W Iv Cont Routine
Comment: OK for oral contrast
Reason For Exam: febrile despite on treatment, drug resistant uti
08/04/24 10:13
Admit/Transfer Patient As Directed
Co-Sign Provider:
Level of Care: Inpatient admission
Assign to:: Medical/Surgical
Physician / Group: Teodoro Xiong
Diagnosis: drug resistant UTI, mechanical fall
Reason for Hospitalization: drug resistant UTI, mechanical fall
Expected length of stay greater than two midnights?: Yes
ELOS- Estimated Length of Stay in days: 3
I certify the patient meets the requirements for IP care: Yes
PRN Pain Medication Management As Directed
May give lesser potent ordered pain med per pt: Yes
preference::
Protocol:: Medication orders for pain may be administered in a
manner that supports deferring to patient preference
when the pt is:
- Requesting an ordered lesser potent pain medication.
Least to most potent pain medications are defined
as: acetaminophen < NSAID < tramadol < opioids
(morphine, oxycodone, hydromorphone).
- Requesting a lesser dose of the same medication IF
ORDERED.
- Requesting a less intrusive route of administration
if both routes are prescribed by the provider (PO <
IV).
08/04/24 10:16
Code Status As Directed
Resuscitation Status: Full Code
Abnormal Lab Results
08/04/24
07:17
Hgb 11.9 L g/dL
(12.0-16.0)
Hct 35.4 L %
(37.0-47.0)
MCV 79.4 L fL
(81.0-99.0)
MCH 26.7 L pg
(27.0-31.0)
RDW 15.7 H %
(11.5-14.5)
Abs Immat Gran (auto) 0.1 H 10^3/uL
(0-0.05)
Absolute Lymphs (auto) 0.5 L 10^3/uL
(1.2-3.4)
Immature Gran % 0.9 H %
(0-0.5)
Neutrophils % 79.7 H %
(42.2-75.2)
Lymphocytes % 8.9 L %
(20.5-51.1)
Sodium 133 L mmol/L
(135-145)
Carbon Dioxide 20 L mmol/L
(22-30)
Creatinine 1.2 H mg/dL
(0.6-1.0)
Total Protein 6.2 L g/dl
(6.3-8.2)
Albumin 3.4 L g/dl
(3.5-5.0)
Leukocyte Esterase Rfl 2+ A
(Negative)
Urine WBC (Reflex) 16-20 A /HPF
(0-5)
Urine Bacteria (Reflex) Few A
(Negative)
08/04/24 07:17
08/04/24 07:17
Vital Signs
Initial and Last Documented VS:
Initial Vital Signs
Temp Pulse Resp BP Pulse Ox
38.7 C H 64 16 124/71 95
08/04/24 07:00 08/04/24 07:00 08/04/24 07:00 08/04/24 07:00 08/04/24 07:00
Last Documented Vital Signs
Temp Pulse Resp BP Pulse Ox
38.3 C H 63 29 100/76 92
08/04/24 08:27 08/04/24 10:00 08/04/24 10:00 08/04/24 10:00 08/04/24 10:00
MDM/Problems Addressed
Differential Diagnosis Includes:
WEAKNESSS, UTI, SEPSIS, SIRS, PNEUMONIA, FLU, COVID, OBSTRUCTIVE UROPATHY
MDM/Problems Addressed:
89 yo F [facility]
slid out of bed x 2 this am, no injuries, no thinners
on bactrim for ecoli/enterococcus UTI from 07/29; febrile, weak; urine still pos, slight elevation in cr; bp stable 130s; lactate normal
ed cosnult with pharmacist assisted with abx;
zosyn
d/w her nieceon the phone
cxr indep reviewed by me, neg;
*Critical Care Note
Total Time (30-74mins, 75-104mins- exclusive of procedures): Not Applicable
ED Attending Note
-
Portions of this chart may have been created with voice recognition software.� Occasional wrong word or��sound alike� substitutions may have occurred due to the inherent limitations of voice recognition software.
Discharge Plan
Departure
Patient Disposition: Admit
Date of Disposition: 08/04/24
Time of Disposition: 08:53
Admit to: Med/Surg
Presentation/result/management discussed w/ accepting MD/DO: Hospitalist
Condition: Fair
Discharge Problem:
FAILURE OF OUTPATIENT ANTIBIOTICS, UTI (urinary tract infection)
Interventions
Interventions:
*Risk Screen - Suicide Last Done: 08/04/24 07:00
*General Assessment Last Done: 08/04/24 07:00
*Neglect/Abuse Screening Last Done: 08/04/24 07:00
ED- Fall Risk Assessment Last Done: 08/04/24 07:31
*ED COVID-19 Vaccine History Last Done: 08/04/24 07:31
ED-Musculoskeletal Assessment Last Done: 08/04/24 07:31
ED- Neurological Assessment Last Done: 08/04/24 07:31
ED-Skin Assessment Last Done: 08/04/24 07:31
[2024-08-04 08:16] LABS: Urine Albumin Trace (Neg - Trace); Urine Bilirubin Negative (Negative); Urine Character Slightly Cloudy (Clear); Urine Color Yellow; Urine Glucose Negative (Negative); Urine Ketone Negative (Negative); Urine Leukocyte 2+ (Negative); Urine Nitrite Negative (Negative); Urine Occult Blood Negative (Negative); Urine Urobilinogen 1+ (Neg - 1+)
[2024-08-04 08:39] LABS: Urine Bacteria Few (Negative); Urine Red Blood Cell 0-2 /HPF (0-2); Urine Squamous Cell 0-2 /LPF (Few); Urine White Cell 16-20 /HPF (0-5)
[2024-08-04 08:46] LABS: NT-proBNP 1680 pg/ml
[2024-08-04] MEDS: ZOSYN 50 IV ×3 (09:33→21:45)
--- NOTE | 2024-08-04 10:32 | HPS.HSE ---
Family Physician
-
Family Physician: Paulie Hussein
Chief Complaint
-
fever/mechanical fall
History of Present Illness
Patient is 89-year-old female with past medical history of coronary disease, congestive heart failure, essential hypertension, hypothyroidism, history of normal pressure Leukoplast, history of overactive bladder, anxiety/depression, left hip
arthroplasty, history of pacemaker was sent from [facility] after patient slid out of bed and was noted to be febrile. Of note patient developed dysuria/dark urine on July 29 and UA was showing pyuria with WBC greater than 100 and
many bacteria, urine culture done in [facility] was growing ESBL E. coli and Enterococcus faecalis, based on susceptibility patient was maintained on Bactrim. Patient felt dysuria was improved although patient started having fever in the night,
patient was provided Tylenol for that. Patient also slid out of bed and was unable to get up. Due to combination of issues patient was sent to ER for further evaluation. In ER patient was found to be hypotensive/febrile and likely septic from UTI.
Medical History
Past Medical History
Past Medical History: Reports Other
Additional Past Medical History:
coronary disease, congestive heart failure, essential hypertension, hypothyroidism, history of normal pressure Leukoplast, history of overactive bladder, anxiety/depression, left hip arthroplasty, history of pacemaker
Past Surgical History: Reports Other
Social History
Tobacco: Non-smoker
Alcohol: Occasional
Drug: None
Living: Group Home
Family History
Family History: Not pertinent
Allergies / Home Medications
Allergies reflects when Allergies were last updated in [facility].
Home Medications with original date entered in [facility]
Allergy/Medication List:
Allergies
Allergy/AdvReac Type Severity Reaction Status Date / Time
No Known Allergies Allergy Verified 08/04/24 07:01
Home Medications
acetaminophen 325 mg tablet (Tylenol) 650 mg PO Q4HPRN PRN mild pain/temp>100 06/10/24
aspirin 81 mg chewable tablet 81 mg PO DAILY Blood Clot Prevention/Tx 06/10/24
bisacodyl 10 mg rectal suppository 10 mg NE DAILYPRN PRN if no results for MOM 06/10/24
bupropion HCl 75 mg tablet 75 mg PO DAILY Depression 06/10/24
cyanocobalamin (vitamin B-12) 1,000 mcg/mL injection solution 1,000 mcg IM MONTHLY 06/10/24
diclofenac sodium 1 % topical gel (Arthritis Pain (diclofenac)) 2 g topical BID right shoulder 06/10/24
folic acid 1 mg tablet 1 mg PO DAILY Supplement 06/10/24
furosemide 40 mg tablet (Lasix) 40 mg PO DAILY Fluid Retention/Swelling 06/10/24
glucosamine-chondroitin 500 mg-400 mg tablet 1 tab PO DAILY Supplement 06/10/24
levothyroxine 112 mcg tablet (Synthroid) 112 mcg PO DAILY Thyroid 06/10/24
magnesium hydroxide 400 mg/5 mL oral suspension (Milk of Magnesia) 30 ml PO HSPRN PRN if no bm in 3 days 06/10/24
multivitamin 1 tab PO DAILY Supplement 06/10/24
oxybutynin chloride 10 mg tablet,extended release 24 hr 10 mg PO DAILY Urinary Issue 06/10/24
polyethylene glycol 3350 17 gram oral powder packet (Miralax) 17 g PO DAILY Constipation 06/10/24
sennosides 8.6 mg tablet (senna) 17.2 mg PO DAILY Constipation 06/10/24
carvedilol 25 mg tablet (Coreg) 25 mg PO DAILY 08/04/24
dextromethorphan-guaifenesin 10 mg-100 mg/5 mL oral syrup 10 ml PO Q6HPRN PRN cough 08/04/24
losartan 25 mg tablet 25 mg PO DAILY 08/04/24
sulfamethoxazole 800 mg-trimethoprim 160 mg tablet (Bactrim DS) 1 tab PO BID 08/04/24
Review of Systems
-
A 12 point ROS was completed and negative except as noted: Yes
Physical Exam
Vital Signs
Vital Signs
Temp Pulse Resp BP Pulse Ox
101 F H 63 29 100/76 92
08/04/24 08:27 08/04/24 10:00 08/04/24 10:00 08/04/24 10:00 08/04/24 10:00
Physical Exam
General: No Apparent Distress
HEENT: Moist mucous membranes and Atraumatic
Respiratory: Clear
Cardiac: S1/S2 and Regular Rhythm; No Murmur or Rub
GI: Soft, Non Tender, Non Distended and Normal Bowel Sounds; No Organomegaly
Rectal: Deferred by Provider
Musculoskeletal: No Clubbing, No Cyanosis and No Edema
Skin: No Rash
Neuro: Nonfocal/grossly intact
Laboratory Results
-
08/04/24 07:17
08/04/24 07:17
Laboratory Results
Lactic Acid Cancelled 08/04/24 11:15
Total Bilirubin 0.3 mg/dl (0.2-1.3) 08/04/24 07:17
AST 24 U/L (14-36) 08/04/24 07:17
ALT 12 U/L (0-35) 08/04/24 07:17
Alkaline Phosphatase 97 U/L (38-126) 08/04/24 07:17
Data Reviewed
-
Lab Data: Labs Reviewed by me
Old Records: Reviewed
Impression/Plan
-
1. Sepsis - Hypotension/fever - POA
ESBL Ecoli and Enterococcus Fecalis UTI
-Patient diagnosed for UTI in [facility],
-Urine culture report reviewed from [facility], susceptibility reviewed of both organism
-Repeat urine culture and blood culture has been collected
-CT abdomen pelvis with IV/oral contrast ordered to rule out any structural problems
-Maintain on IV Zosyn for now
2. Generalized weakness
-PT/OT evaluation
3. Essential hypertension
-Hold blood pressure medication as patient blood pressure soft
-Will resume as appropriate
4. Congestive heart failure
-Type unknown, no previous echocardiogram in chart to compare with
-Clinically no signs of heart failure
-Hold Lasix with patient Hypotension
coronary disease
hypothyroidism
history of normal pressure hydrocephalus
history of overactive bladder
anxiety/depression
left hip arthroplasty
history of pacemaker placement
DVT PPX - lovenox
DNR/DNI - reviewed NH directive
Total time spent : 78 mins
I personally saw and examined the patient.
I have reviewed all diagnostic interpretations and treatment plans as written.
Time includes patient management by me, time spent at the patients bedside, time to review lab and imaging results, discussing patient care, documentation in the medical record, and time spent with the family or caregiver and discussing care plan
with RN/Consultants.
[2024-08-04] MEDS: OMNIPAQUE 50 ML PO (14:14)
--- NOTE | 2024-08-04 16:06 | CM ---
CM sent clinical information to Kyra at [facility] via fax. Patient is LTC at [facility]. Return on discharge.
[facility]-LTC
Report: [phone]
[2024-08-04] MEDS: LOVENOX 30 MG SC (18:38)
[2024-08-05] MEDS: ZOSYN 50 IV ×4 (05:00→21:14)
[2024-08-05] MEDS: SYNTHROID 112 MCG PO (05:00)
[2024-08-05 06:00] VITALS: BMI 22.7
[2024-08-05 07:32] VITALS: BP 114/64
[2024-08-05 07:47] LABS: Hematocrit 33.3 % (37.0-47.0); Hemoglobin 11.2 g/dL (12.0-16.0); Mean Corp Hgb Conc. 33.6 g/dL (33.0-37.0); Mean Corpuscular Hgb 26.8 pg (27.0-31.0); Mean Corpuscular Volume 79.7 fL (81.0-99.0); Mean Platelet Volume 10.4 fL (7.4-10.4); Platelet Count 116 10^3/uL (130-400); Red Blood Cell Count 4.18 10^6/uL (4.20-5.40); Red Cell Dist. Width 15.8 % (11.5-14.5); White Blood Cell Count 3.4 10^3/uL (4.8-10.8)
[2024-08-05 08:11] LABS: Blood Urea Nitrogen 11 mg/dl (7-17); Calcium 7.9 mg/dl (8.4-10.2); Carbon Dioxide 23 mmol/L (22-30); Chloride 99 mmol/L (98-107); Estimated Creatinine Clearance 36 ml/min; Glucose 78 mg/dl (70-99); Potassium 4.3 mmol/L (3.5-5.1); Sodium 130 mmol/L (135-145); eGFR 53.85
[2024-08-05] MEDS: LOW STRENGTH ASPIRIN 81 MG PO (08:45)
[2024-08-05] MEDS: WELLBUTRIN REGULAR RELEASE 75 MG PO (08:45)
[2024-08-05] MEDS: MIRALAX PO (08:46)
--- NOTE | 2024-08-05 13:39 | W.PN.HOSP.TC ---
Today's Communication/Plan
-
f/u urine/blood cs - no growth so far
continue abx
f/u Na level
resume lasix from tomorrow
Assessment / Plan
Assessment / Plan
1. Sepsis - Hypotension/fever - POA
ESBL Ecoli and Enterococcus Fecalis UTI
-Patient diagnosed for UTI in [facility],
-Urine culture report reviewed from [facility], susceptibility reviewed of both organism
-Repeat urine culture and blood culture has been collected
-CT abdomen pelvis with IV/oral contrast ordered to rule out any structural problems
-Maintain on IV Zosyn for now
2. Generalized weakness
-PT/OT evaluated and will need rehab placement
3. Essential hypertension
-Blood pressure improved today, will continue holding medication 1 more day
4. Congestive heart failure
-Type unknown, no previous echocardiogram in chart to compare with
-Clinically no signs of heart failure
-Resume Lasix from tomorrow
5. Hyponatremia
-presuming euvolemic, monitor
6. Thrombocytopenia
-Likely with sepsis, will need to r/o bacteremia
coronary disease
hypothyroidism
history of normal pressure hydrocephalus
history of overactive bladder
anxiety/depression
left hip arthroplasty
history of pacemaker placement
DVT PPX - lovenox
DNR/DNI - reviewed NH directive
Total time spent : 52 mins
Anticipated Discharge: 24 - 48 hours
Subjective/Interval History
-
Date of Service: August 05, 2024
Denies of any abdominal pain
Afebrile overnight
No other complaints
Objective Data
-
Labs:
Laboratory Results
08/05/24
07:00
WBC 3.4 L
Hgb 11.2 L
Hct 33.3 L
Plt Count 116 L
Sodium 130 L
Potassium 4.3
Chloride 99
Carbon Dioxide 23
BUN 11
Creatinine 1.0
Glucose 78
Calcium 7.9 L
Vital Signs:
Vital Signs
Temp Pulse Resp BP Pulse Ox
99.6 F 76 17 114/64 95
08/05/24 07:32 08/05/24 07:32 08/05/24 07:32 08/05/24 07:32 08/05/24 07:32
I&O
08/04/24 08/05/24 08/06/24
06:59 06:59 06:59
Intake Total 480 / 480
Balance 480 / 480
Review of Systems
-
Respiratory: Reports No Symptoms
Cardiac: Reports No Symptoms
Abdomen/GI: Reports No Symptoms
Physical Exam
-
General: No Apparent Distress and Comfortable
HEENT: Negative Oxygen
Respiratory: Clear to Auscultation
Cardiac: Regular Rhythm and S1/S2; Negative Murmur or Rub
GI: Soft, Nontender, Nondistended and Normal Bowel Sounds
Musculoskeletal: No Edema
Neuro: Awake, Alert, Oriented, No Motor Deficits and Nonfocal/Grossly Intact
Psych: Calm
[2024-08-05 15:39] VITALS: BP 108/78
[2024-08-05] MEDS: LOVENOX 30 MG SC (17:00)
[2024-08-05] MEDS: FLUSH (NSS) 1 FLUSH IV (21:15)
[2024-08-05 23:25] VITALS: BP 124/56
[2024-08-06] MEDS: ZOSYN 50 IV ×4 (04:54→21:14)
[2024-08-06] MEDS: SYNTHROID 112 MCG PO (04:56)
[2024-08-06 05:01] VITALS: BMI 22.7
[2024-08-06 07:00] VITALS: BP 132/71
[2024-08-06 07:21] LABS: Hematocrit 35.5 % (37.0-47.0); Hemoglobin 12.1 g/dL (12.0-16.0); Mean Corp Hgb Conc. 34.1 g/dL (33.0-37.0); Mean Corpuscular Hgb 26.9 pg (27.0-31.0); Mean Corpuscular Volume 79.1 fL (81.0-99.0); Red Blood Cell Count 4.49 10^6/uL (4.20-5.40); Red Cell Dist. Width 15.9 % (11.5-14.5)
[2024-08-06 07:57] LABS: Blood Urea Nitrogen 12 mg/dl (7-17); Calcium 7.9 mg/dl (8.4-10.2); Carbon Dioxide 23 mmol/L (22-30); Chloride 98 mmol/L (98-107); Estimated Creatinine Clearance 36 ml/min; Glucose 80 mg/dl (70-99); Potassium 3.9 mmol/L (3.5-5.1); Sodium 131 mmol/L (135-145); eGFR 53.85
[2024-08-06 08:27] LABS: Platelet Count 94 10^3/uL (130-400)
[2024-08-06] MEDS: WELLBUTRIN REGULAR RELEASE 75 MG PO (09:36)
[2024-08-06] MEDS: MIRALAX 17 GRAMS PO (09:36)
[2024-08-06] MEDS: LOW STRENGTH ASPIRIN 81 MG PO (09:36)
[2024-08-06] MEDS: LASIX 40 MG PO (09:36)
--- NOTE | 2024-08-06 12:47 | W.PN.HOSP.TC ---
Today's Communication/Plan
-
Finish course of IV antibiotic
Follow platelet count
will need snf rehab
Assessment / Plan
Assessment / Plan
1. Sepsis - Hypotension/fever - POA
ESBL Ecoli and Enterococcus Faecalis UTI
-Patient diagnosed for UTI in [facility],
-Urine culture report reviewed from [facility], susceptibility reviewed of both organism
-Repeat urine culture/blood culture negative during this stay.
-CT abdomen pelvis with IV/oral contrast ordered to rule out any structural problems
-Maintain on IV Zosyn for now, day 3/5 now. can increase length if warranted.
2. Generalized weakness
-PT/OT evaluated and will need rehab placement
3. Essential hypertension
-Resume Coreg/losartan with holding parameter
4. Congestive heart failure
-Type unknown, no previous echocardiogram in chart to compare with
-Clinically no signs of heart failure
-Lasix has been resumed at home dose of 40 mg daily
5. Hyponatremia
-presuming euvolemic, monitor
6. Thrombocytopenia
-Likely with sepsis, will need to r/o bacteremia
coronary disease
hypothyroidism
history of normal pressure hydrocephalus
history of overactive bladder
anxiety/depression
left hip arthroplasty
history of pacemaker placement
DVT PPX - lovenox
DNR/DNI - reviewed NH directive
Anticipated Discharge: 24 - 48 hours
Subjective/Interval History
-
Date of Service: August 06, 2024
Afebrile overnight
No other issues
Objective Data
-
Labs:
Laboratory Results
08/06/24
06:34
WBC 3.0 L
Hgb 12.1
Hct 35.5 L
Plt Count 94 L
Sodium 131 L
Potassium 3.9
Chloride 98
Carbon Dioxide 23
BUN 12
Creatinine 1.0
Glucose 80
Calcium 7.9 L
Vital Signs:
Vital Signs
Temp Pulse Resp BP Pulse Ox
97.5 F 67 18 132/71 95
08/06/24 07:00 08/06/24 07:00 08/06/24 07:00 08/06/24 07:00 08/06/24 08:30
I&O
08/05/24 08/06/24 08/07/24
06:59 06:59 06:59
Intake Total 480 / 480 450 / 450
Balance 480 / 480 450 / 450
Review of Systems
-
Respiratory: Reports No Symptoms
Cardiac: Reports No Symptoms
Abdomen/GI: Reports No Symptoms
Physical Exam
-
General: No Apparent Distress and Comfortable
HEENT: Negative Oxygen
Respiratory: Clear to Auscultation
Cardiac: Regular Rhythm and S1/S2; Negative Murmur or Rub
GI: Soft, Nontender, Nondistended and Normal Bowel Sounds
Musculoskeletal: No Edema
Neuro: Awake, Alert, Oriented, No Motor Deficits and Nonfocal/Grossly Intact
Psych: Calm
[2024-08-06 15:00] VITALS: BP 115/65
[2024-08-06] MEDS: LOVENOX 30 MG SC (17:27)
[2024-08-06 23:33] VITALS: BP 111/67
[2024-08-07] MEDS: ZOSYN 50 IV ×4 (03:45→23:07)
[2024-08-07 03:59] VITALS: BMI 21.8
[2024-08-07] MEDS: SYNTHROID 112 MCG PO (05:26)
[2024-08-07 05:51] LABS: Hematocrit 36.9 % (37.0-47.0); Hemoglobin 12.6 g/dL (12.0-16.0); Mean Corp Hgb Conc. 34.1 g/dL (33.0-37.0); Mean Corpuscular Hgb 26.8 pg (27.0-31.0); Mean Corpuscular Volume 78.5 fL (81.0-99.0); Mean Platelet Volume 10.1 fL (7.4-10.4); Platelet Count 93 10^3/uL (130-400); Red Cell Dist. Width 15.3 % (11.5-14.5); White Blood Cell Count 3.1 10^3/uL (4.8-10.8)
[2024-08-07 06:25] LABS: Blood Urea Nitrogen 11 mg/dl (7-17); Calcium 8.3 mg/dl (8.4-10.2); Carbon Dioxide 20 mmol/L (22-30); Chloride 100 mmol/L (98-107); Estimated Creatinine Clearance 45 ml/min; Glucose 91 mg/dl (70-99); Potassium 3.8 mmol/L (3.5-5.1); Sodium 131 mmol/L (135-145); eGFR > 60.00
[2024-08-07 07:45] VITALS: BP 94/53
[2024-08-07] MEDS: LOW STRENGTH ASPIRIN 81 MG PO (08:02)
[2024-08-07] MEDS: LASIX 40 MG PO (08:03)
[2024-08-07] MEDS: WELLBUTRIN REGULAR RELEASE 75 MG PO (08:03)
[2024-08-07] MEDS: MIRALAX PO (08:03)
--- NOTE | 2024-08-07 09:57 | CM ---
Reviewed the chart notes. Patient has been a resident of [facility] since 02/2023. CM continues to be available to patient/family and is monitoring medical plan for needs at discharge.
Plan: Discharge back to [facility] when medically stable.
Call report to: [phone]
Fax report to: [phone]
Medical necessity and transport forms on chart.
[2024-08-07 11:44] VITALS: BP 99/66
--- NOTE | 2024-08-07 13:05 | W.PN.HOSP.TC ---
Today's Communication/Plan
-
IV zosyn
trend cbc
monitor BP-hold losartan
hold lasix
Assessment / Plan
Assessment / Plan
Sepsis - Hypotension/fever - POA
ESBL Ecoli and Enterococcus Faecalis UTI
-Patient diagnosed for UTI in residential,
-Urine culture report reviewed from residential, susceptibility reviewed of both organism
-Repeat urine culture/blood culture negative during this stay.
-CT abdomen pelvis with IV/oral contrast ordered to rule out any structural problems
-Maintain on IV Zosyn for now,
Generalized weakness
-PT/OT evaluated and will need rehab placement
Essential hypertension and now with hypotension
-Reduce coreg 3.125mg to BID. Hold losartan and lasix for now.
Congestive heart failure
-Type unknown, no previous echocardiogram in chart to compare with
-Clinically no signs of heart failure
-Lasix can be resume once BP stabilizes.
Hyponatremia
-presuming euvolemic, monitor
Thrombocytopenia
-Likely with sepsis,
-monitor for now
coronary disease
hypothyroidism
history of normal pressure hydrocephalus
history of overactive bladder
anxiety/depression
left hip arthroplasty
history of pacemaker placement
DVT PPX - lovenox
DNR/DNI - reviewed [facility] directive
Anticipated Discharge: Within 24 hours
Subjective/Interval History
-
Date of Service: August 07, 2024
Pt with no abd pain
afebrile
voiding without difficulty
no lightheadedness or dizziness
BP was soft this morning
Objective Data
-
Labs:
Laboratory Results
08/07/24
05:29
WBC 3.1 L
Hgb 12.6
Hct 36.9 L
Plt Count 93 L
Sodium 131 L
Potassium 3.8
Chloride 100
Carbon Dioxide 20 L
BUN 11
Creatinine 0.8
Glucose 91
Calcium 8.3 L
Vital Signs:
Vital Signs
Temp Pulse Resp BP Pulse Ox
98.2 F 62 18 99/66 95
08/07/24 07:45 08/07/24 11:44 08/07/24 07:45 08/07/24 11:44 08/07/24 07:45
I&O
08/06/24 08/07/24 08/08/24
06:59 06:59 06:59
Intake Total 450 / 450 2140 / 2140
Balance 450 / 450 0 / 2140
Physical Exam
-
General: No Apparent Distress and Comfortable
HEENT: Negative Oxygen
Respiratory: Clear to Auscultation
Cardiac: Regular Rhythm and S1/S2; Negative Murmur or Rub
GI: Soft, Nontender, Nondistended and Normal Bowel Sounds
Musculoskeletal: No Edema
Neuro: Awake, Alert, Oriented, No Motor Deficits and Nonfocal/Grossly Intact
Psych: Calm
[2024-08-07] MEDS: VISBIOME 2 CAP PO (13:56)
[2024-08-07 15:00] VITALS: BP 105/67
--- NOTE | 2024-08-07 15:55 | CM ---
Reviewed the chart notes and spoke with the patient at the bedside. IMM reviewed.
[2024-08-07] MEDS: LOVENOX 30 MG SC (17:20)
[2024-08-08 00:09] VITALS: BP 131/72
[2024-08-08] MEDS: ZOSYN 50 IV ×4 (04:57→21:38)
[2024-08-08] MEDS: SYNTHROID 112 MCG PO (06:27)
[2024-08-08 06:36] LABS: Hematocrit 37.6 % (37.0-47.0); Hemoglobin 12.9 g/dL (12.0-16.0); Mean Corp Hgb Conc. 34.3 g/dL (33.0-37.0); Mean Corpuscular Hgb 26.8 pg (27.0-31.0); Mean Corpuscular Volume 78.2 fL (81.0-99.0); Platelet Count 112 10^3/uL (130-400); Red Blood Cell Count 4.81 10^6/uL (4.20-5.40); Red Cell Dist. Width 15.5 % (11.5-14.5); White Blood Cell Count 3.7 10^3/uL (4.8-10.8)
[2024-08-08 07:15] VITALS: BP 129/78
[2024-08-08 07:23] LABS: Blood Urea Nitrogen 11 mg/dl (7-17); Calcium 8.2 mg/dl (8.4-10.2); Carbon Dioxide 23 mmol/L (22-30); Chloride 102 mmol/L (98-107); Estimated Creatinine Clearance 45 ml/min; Glucose 81 mg/dl (70-99); Potassium 3.7 mmol/L (3.5-5.1); Sodium 134 mmol/L (135-145); eGFR > 60.00
[2024-08-08] MEDS: LOW STRENGTH ASPIRIN 81 MG PO (09:01)
[2024-08-08] MEDS: COREG 3.125 MG PO (09:02)
[2024-08-08] MEDS: WELLBUTRIN REGULAR RELEASE 75 MG PO (09:02)
[2024-08-08] MEDS: VISBIOME 2 CAP PO (09:02)
--- NOTE | 2024-08-08 09:23 | PN.CDI ---
CDI
- -
CDI:
Physician Documentation Request
Admit Date: 08/04/24 10:43
Dear Doctor Corona,
Please review the following and provide your response in the progress notes.
Clinical Indicators:
Pt admitted with sepsis and ecoli UTI.
Laboratory Tests
08/04/24 08/06/24 08/07/24
07:17 06:34 05:29
Creatinine 1.2 H 1.0 0.8
eGFR 43.27 53.85 > 60.00
08/08/24
05:56
Creatinine 0.8
eGFR > 60.00
Clarify which of the following accurately represents the patient's renal status:
Acute kidney injury (non-traumatic) - see criteria-resolved
CKD
Other
Criteria for ZARA*
1 Increase in serum creatinine by > or = to 0.3 mg/dL (> or = to 26.5 micromol/L) within 48 hours, OR
2 Increase in serum creatinine to > or = to 1.5 times baseline, which is known or presumed to have occurred within 7 days, OR
3 Urine volume < 0.5 nL/kg/hour for six hours
Stages of Chronic Kidney Disease*
Level Description GFR
G1 Normal or High >90
G2 Mildly decreased 60-89
G3a Mildly to moderately decreased 45-59
G3b Moderately to severely decreased 30-44
G4 Severely decreased 15-29
G5 Kidney failure <15
Use of terms such as suspected, likely, concern for, or probable (associated with a specific diagnosis that is being evaluated, monitored, or treated as if it exists) are acceptable and can be coded in the inpatient setting, when documented at the
time of discharge.
Thank you,
Lulu Nieves RN, BSN
CDI Specialist
[facility]
Please use your independent medical judgment in providing your response.
*Source: Kidney Disease: Improving Global Outcomes (KDIGO) 2012
[2024-08-08 10:16] LABS: % Basophils 0.5 % (0-2); % Eosinophils 5.4 % (0-6); % Immature Granulocytes 0.8 % (0-0.5); % Lymphocytes 50.9 % (20.5-51.1); % Monocytes 11.4 % (1.7-9.3); Absolute Eosinophils 0.2 10^3/uL (0-0.7); Absolute Lymphocytes 1.9 10^3/uL (1.2-3.4); Absolute Monocytes 0.4 10^3/uL (0.1-0.6); Absolute Neutrophils 1.1 10^3/uL (1.4-6.5); Nucleated Red Blood Cells % 0 %
--- NOTE | 2024-08-08 11:29 | W.PN.HOSP.TC ---
Today's Communication/Plan
-
IV abx
probiotics
monitor BP
Assessment / Plan
Assessment / Plan
Sepsis - Hypotension/fever - POA
ESBL Ecoli and Enterococcus Faecalis UTI
-Patient diagnosed for UTI in care home,
-Urine culture report reviewed from care home, susceptibility reviewed of both organism
-Repeat urine culture/blood culture negative during this stay.
-CT abdomen pelvis with IV/oral contrast ordered to rule out any structural problems
-Maintain on IV Zosyn for now,
Generalized weakness
-PT/OT evaluated and will need rehab placement
Essential hypertension and now with hypotension
-Reduce coreg 3.125mg to BID. Hold losartan and lasix for now.
-can restart lasix in 24h.
Congestive heart failure
-Type unknown, no previous echocardiogram in chart to compare with
-Clinically no signs of heart failure
-Lasix can be resume once BP stabilizes.
Hyponatremia
-presuming euvolemic, monitor
Thrombocytopenia
-Likely with sepsis,
-monitor for now. Plt improving
ZARA
-resolved
coronary disease
hypothyroidism
history of normal pressure hydrocephalus
history of overactive bladder
anxiety/depression
left hip arthroplasty
history of pacemaker placement
DVT PPX - lovenox
DNR/DNI
Anticipated Discharge: > 48 hours
Subjective/Interval History
-
Date of Service: August 08, 2024
BP improving
afebrile
states appetite is improving
wants to work with PT
Objective Data
-
Labs:
Laboratory Results
08/08/24
05:56
WBC 3.7 L
Hgb 12.9
Hct 37.6
Plt Count 112 L D
Sodium 134 L
Potassium 3.7
Chloride 102
Carbon Dioxide 23
BUN 11
Creatinine 0.8
Glucose 81
Calcium 8.2 L
Vital Signs:
Vital Signs
Temp Pulse Resp BP Pulse Ox
97.4 F 62 16 129/78 99
08/08/24 07:15 08/08/24 07:15 08/08/24 07:15 08/08/24 07:15 08/08/24 07:15
I&O
08/07/24 08/08/24 08/09/24
06:59 06:59 06:59
Intake Total 2140 / 0 480 / 480
Balance 2140 / 2140 480 / 480
Physical Exam
-
General: No Apparent Distress and Comfortable
HEENT: Negative Oxygen
Respiratory: Clear to Auscultation
Cardiac: Regular Rhythm and S1/S2; Negative Murmur or Rub
GI: Soft, Nontender, Nondistended and Normal Bowel Sounds
Musculoskeletal: No Edema
Neuro: Awake, Alert, Oriented, No Motor Deficits and Nonfocal/Grossly Intact
Psych: Calm
Data Reviewed
-
Total Time Spent with Patient (in minutes): 55
Old Records: Reviewed
--- NOTE | 2024-08-08 14:09 | CM ---
Patient LTC resident at [facility]
On IV antibiotics
Referral entered in [facility].
Spoke with Kyra liaison at [facility] & updated. Patient bed hold.
PLAN: Return to [facility]
[2024-08-08 15:42] VITALS: BP 136/88
[2024-08-08] MEDS: LOVENOX 40 MG SC (17:33)
[2024-08-08 23:25] VITALS: BP 139/76
[2024-08-09] MEDS: SYNTHROID 112 MCG PO (04:27)
[2024-08-09] MEDS: ZOSYN 50 IV ×4 (04:27→21:10)
[2024-08-09 06:36] VITALS: BMI 22.4
[2024-08-09 06:56] LABS: Blood Urea Nitrogen 11 mg/dl (7-17); Calcium 8.2 mg/dl (8.4-10.2); Carbon Dioxide 25 mmol/L (22-30); Chloride 101 mmol/L (98-107); Estimated Creatinine Clearance 51 ml/min; Glucose 82 mg/dl (70-99); Potassium 4.1 mmol/L (3.5-5.1); Sodium 134 mmol/L (135-145); eGFR > 60.00
[2024-08-09 07:02] LABS: % Basophils 0.3 % (0-2); % Eosinophils 3.6 % (0-6); % Immature Granulocytes 0.5 % (0-0.5); % Lymphocytes 49.2 % (20.5-51.1); % Monocytes 11.4 % (1.7-9.3); Absolute Eosinophils 0.1 10^3/uL (0-0.7); Absolute Lymphocytes 1.9 10^3/uL (1.2-3.4); Absolute Monocytes 0.5 10^3/uL (0.1-0.6); Absolute Neutrophils 1.4 10^3/uL (1.4-6.5); Hematocrit 38.8 % (37.0-47.0); Hemoglobin 12.6 g/dL (12.0-16.0); Mean Corp Hgb Conc. 32.5 g/dL (33.0-37.0); Mean Corpuscular Hgb 26.1 pg (27.0-31.0); Mean Corpuscular Volume 80.3 fL (81.0-99.0); Mean Platelet Volume 10.8 fL (7.4-10.4); Nucleated Red Blood Cells % 0 %; Platelet Count 130 10^3/uL (130-400); Red Blood Cell Count 4.83 10^6/uL (4.20-5.40); Red Cell Dist. Width 15.9 % (11.5-14.5); White Blood Cell Count 3.9 10^3/uL (4.8-10.8)
[2024-08-09 07:40] VITALS: BP 127/73
[2024-08-09] MEDS: COREG 3.125 MG PO (07:43)
[2024-08-09] MEDS: VISBIOME 2 CAP PO (07:43)
[2024-08-09] MEDS: WELLBUTRIN REGULAR RELEASE 75 MG PO (07:44)
[2024-08-09] MEDS: LASIX 40 MG PO (09:21)
[2024-08-09 10:30] VITALS: BP 128/76; PULSE 60; O2SAT 98
--- NOTE | 2024-08-09 10:32 | CM ---
Patient cont on IV antibiotics
LTC of [facility]
Spoke with Kyra carbajal & updated.
Referral in [facility]
PLAN: Return to [facility] when medically stable.
[2024-08-09] MEDS: LOW STRENGTH ASPIRIN 81 MG PO (10:46)
[2024-08-09 11:28] VITALS: BP 128/76; PULSE 60; O2SAT 98
--- NOTE | 2024-08-09 11:42 | W.PN.HOSP.TC ---
Today's Communication/Plan
-
IV zosyn for now
restart lasix
monitor BP
OOB/PT
Assessment / Plan
Assessment / Plan
Sepsis - Hypotension/fever - POA
ESBL Ecoli and Enterococcus Faecalis UTI
-Patient diagnosed for UTI in [facility],
-Urine culture report reviewed from [facility], susceptibility reviewed of both organism
-Repeat urine culture/blood culture negative during this stay.
-CT abdomen pelvis with IV/oral contrast ordered to rule out any structural problems
-Maintain on IV Zosyn for now- Day 11/29. No appropriate po option available.
Generalized weakness
-PT/OT evaluated and will need rehab placement
Essential hypertension and now with hypotension
-Reduce coreg 3.125mg to BID. Hold losartan and lasix for now.
-can restart lasix in 24h.
Congestive heart failure
-Type unknown, no previous echocardiogram in chart to compare with
-Clinically no signs of heart failure
-Lasix can be resume
Hyponatremia
-presuming euvolemic, monitor. Na improved 134
Thrombocytopenia
-Likely with sepsis,
-monitor for now. Plt improving 130
ZARA
-resolved
coronary disease
hypothyroidism
history of normal pressure hydrocephalus
history of overactive bladder
anxiety/depression
left hip arthroplasty
history of pacemaker placement
DVT PPX - lovenox
DNR/DNI
Anticipated Discharge: > 48 hours
Subjective/Interval History
-
Date of Service: August 09, 2024
Tolerating diet
states of increase urination but no dysuria
BP starting to stabilize
Objective Data
-
Labs:
Laboratory Results
08/09/24
05:21
WBC 3.9 L
Hgb 12.6
Hct 38.8
Plt Count 130
Sodium 134 L
Potassium 4.1
Chloride 101
Carbon Dioxide 25
BUN 11
Creatinine 0.7
Glucose 82
Calcium 8.2 L
Vital Signs:
Vital Signs
Temp Pulse Resp BP Pulse Ox
97.5 F 62 18 135/75 97
08/09/24 08:09 08/09/24 09:21 08/09/24 07:40 08/09/24 09:21 08/09/24 07:40
I&O
08/08/24 08/09/24 08/10/24
06:59 06:59 06:59
Intake Total 480 / 480 760 / 760
Balance 480 / 480 760 / 760
Physical Exam
-
General: No Apparent Distress and Comfortable
HEENT: Negative Oxygen
Respiratory: Clear to Auscultation
Cardiac: Regular Rhythm and S1/S2; Negative Murmur or Rub
GI: Soft, Nontender, Nondistended and Normal Bowel Sounds
Musculoskeletal: No Edema
Neuro: Awake, Alert, Oriented, No Motor Deficits and Nonfocal/Grossly Intact
Psych: Calm
[2024-08-09 15:30] VITALS: BP 119/67
[2024-08-09] MEDS: LOVENOX 40 MG SC (15:48)
[2024-08-09 23:00] VITALS: BP 128/69
[2024-08-10] MEDS: ZOSYN 50 IV ×4 (03:28→21:16)
[2024-08-10] MEDS: SYNTHROID 112 MCG PO (05:02)
[2024-08-10 06:00] VITALS: BMI 21.2
[2024-08-10 06:23] LABS: % Basophils 0.4 % (0-2); % Eosinophils 2.3 % (0-6); % Immature Granulocytes 0.4 % (0-0.5); % Lymphocytes 33.2 % (20.5-51.1); % Monocytes 12.5 % (1.7-9.3); % Neutrophils 51.2 % (42.2-75.2); Absolute Eosinophils 0.1 10^3/uL (0-0.7); Absolute Lymphocytes 1.7 10^3/uL (1.2-3.4); Absolute Monocytes 0.7 10^3/uL (0.1-0.6); Absolute Neutrophils 2.7 10^3/uL (1.4-6.5); Hematocrit 36.9 % (37.0-47.0); Hemoglobin 12.1 g/dL (12.0-16.0); Mean Corp Hgb Conc. 32.8 g/dL (33.0-37.0); Mean Corpuscular Hgb 26.5 pg (27.0-31.0); Mean Corpuscular Volume 80.9 fL (81.0-99.0); Mean Platelet Volume 10.5 fL (7.4-10.4); Nucleated Red Blood Cells % 0 %; Platelet Count 139 10^3/uL (130-400); Red Blood Cell Count 4.56 10^6/uL (4.20-5.40); Red Cell Dist. Width 15.9 % (11.5-14.5); White Blood Cell Count 5.2 10^3/uL (4.8-10.8)
[2024-08-10 06:55] LABS: Blood Urea Nitrogen 14 mg/dl (7-17); Calcium 8.7 mg/dl (8.4-10.2); Carbon Dioxide 26 mmol/L (22-30); Chloride 101 mmol/L (98-107); Estimated Creatinine Clearance 51 ml/min; Glucose 83 mg/dl (70-99); Potassium 3.6 mmol/L (3.5-5.1); Sodium 134 mmol/L (135-145); eGFR > 60.00
[2024-08-10] MEDS: WELLBUTRIN REGULAR RELEASE 75 MG PO (07:20)
[2024-08-10] MEDS: LASIX 40 MG PO (07:20)
[2024-08-10] MEDS: VISBIOME 2 CAP PO (07:20)
[2024-08-10] MEDS: LOW STRENGTH ASPIRIN 81 MG PO (07:20)
[2024-08-10] MEDS: COREG 3.125 MG PO (07:20)
[2024-08-10 08:03] VITALS: BP 115/76
--- NOTE | 2024-08-10 10:30 | CM ---
Patient is a LTC resident of [facility]
Per Kyra liaison bed hold
Return to [facility] when medically stable.
Transportation forms on chart
PLAN: [facility]
Report: [phone]
--- NOTE | 2024-08-10 11:56 | W.PN.HOSP.TC ---
Today's Communication/Plan
-
IV zosyn day 12/30
snf tomm
Assessment / Plan
Assessment / Plan
Sepsis - Hypotension/fever - POA
ESBL Ecoli and Enterococcus Faecalis UTI
-[facility] diagnosed for UTI in [facility],
-Urine culture report reviewed from [facility], susceptibility reviewed of both organism
-Repeat urine culture/blood culture negative during this stay.
-CT abdomen pelvis with IV/oral contrast ordered to rule out any structural problems
-Maintain on IV Zosyn for now- Day 12/30. No appropriate po option available.
Generalized weakness
-PT/OT eval.
Essential hypertension and now with hypotension
-Reduce coreg 3.125mg to BID. Hold losartan
-Bp controlled
Congestive heart failure
-Type unknown, no previous echocardiogram in chart to compare with
-Clinically no signs of heart failure
-Lasix restarted
Hyponatremia
-presuming euvolemic, monitor. Na improved 134
Thrombocytopenia
-Likely with sepsis,
-monitor for now. Platelet normalized.
ZARA
-resolved
coronary disease
hypothyroidism
history of normal pressure hydrocephalus
history of overactive bladder
anxiety/depression
left hip arthroplasty
history of pacemaker placement
DVT PPX - lovenox
DNR/DNI
Anticipated Discharge: Within 24 hours
Subjective/Interval History
-
Date of Service: August 10, 2024
Tolerating diet
worked with PT yesterday
tolerating diet
Objective Data
-
Labs:
Laboratory Results
08/10/24
05:25
WBC 5.2
Hgb 12.1
Hct 36.9 L
Plt Count 139
Sodium 134 L
Potassium 3.6
Chloride 101
Carbon Dioxide 26
BUN 14
Creatinine 0.7
Glucose 83
Calcium 8.7
Vital Signs:
Vital Signs
Temp Pulse Resp BP Pulse Ox
98.4 F 71 16 115/76 98
08/10/24 08:03 08/10/24 08:03 08/10/24 08:03 08/10/24 08:03 08/10/24 08:03
I&O
08/09/24 08/10/24 08/11/24
06:59 06:59 06:59
Intake Total 760 / 760 720 / 720
Balance 760 / 760 720 / 720
Physical Exam
-
General: No Apparent Distress and Comfortable
HEENT: Negative Oxygen
Respiratory: Clear to Auscultation
Cardiac: Regular Rhythm and S1/S2; Negative Murmur or Rub
GI: Soft, Nontender, Nondistended and Normal Bowel Sounds
Musculoskeletal: No Edema
Neuro: Awake, Alert, Oriented, No Motor Deficits and Nonfocal/Grossly Intact
Psych: Calm
[2024-08-10 15:45] VITALS: BP 129/66
[2024-08-10] MEDS: LOVENOX 40 MG SC (17:00)
[2024-08-10 23:00] VITALS: BP 124/69
[2024-08-11] MEDS: ZOSYN 50 IV ×2 (04:16→09:57)
[2024-08-11] MEDS: SYNTHROID 112 MCG PO (05:40)
[2024-08-11 06:00] VITALS: BMI 21.8
[2024-08-11 06:38] LABS: % Basophils 0.6 % (0-2); % Eosinophils 2.5 % (0-6); % Lymphocytes 29.4 % (20.5-51.1); % Monocytes 12.7 % (1.7-9.3); % Neutrophils 53.8 % (42.2-75.2); Absolute Eosinophils 0.1 10^3/uL (0-0.7); Absolute Immature Granulocytes 0.1 10^3/uL (0-0.05); Absolute Lymphocytes 1.4 10^3/uL (1.2-3.4); Absolute Monocytes 0.6 10^3/uL (0.1-0.6); Absolute Neutrophils 2.6 10^3/uL (1.4-6.5); Hemoglobin 12.1 g/dL (12.0-16.0); Mean Corp Hgb Conc. 33.6 g/dL (33.0-37.0); Mean Corpuscular Hgb 26.9 pg (27.0-31.0); Mean Platelet Volume 11.1 fL (7.4-10.4); Nucleated Red Blood Cells % 0 %; Platelet Count 173 10^3/uL (130-400); Red Cell Dist. Width 15.7 % (11.5-14.5); White Blood Cell Count 4.8 10^3/uL (4.8-10.8)
[2024-08-11 07:21] LABS: Blood Urea Nitrogen 8 mg/dl (7-17); Calcium 8.8 mg/dl (8.4-10.2); Carbon Dioxide 25 mmol/L (22-30); Chloride 101 mmol/L (98-107); Estimated Creatinine Clearance 51 ml/min; Glucose 85 mg/dl (70-99); Potassium 3.7 mmol/L (3.5-5.1); Sodium 134 mmol/L (135-145); eGFR > 60.00
[2024-08-11] MEDS: COREG 3.125 MG PO (08:04)
[2024-08-11] MEDS: WELLBUTRIN REGULAR RELEASE 75 MG PO (08:04)
[2024-08-11] MEDS: VISBIOME 2 CAP PO (08:04)
[2024-08-11] MEDS: LOW STRENGTH ASPIRIN 81 MG PO (08:04)
[2024-08-11] MEDS: LASIX 40 MG PO (08:04)
[2024-08-11 08:17] VITALS: BP 92/53
--- NOTE | 2024-08-11 11:22 | CM ---
Chart reviewed. Pt is LTC resident from [facility]. Currently being recommended for rehab
CM updated [facility] referral. Spoke w/ Kyra informing of poss d/c today and rehab needs
Per nurse, pt can d/c today if BP is stable
CM met w/ pt bedside informing of poss d/c and needing rehab when she returns to facility.
IMM reviewed, copy given to pt, copy placed on chart
Ambulance transport forms on chart
[facility]
Report: [phone]

Plan: [facility] SNF via ambulance
[2024-08-11 11:35] VITALS: BP 134/80
--- NOTE | 2024-08-11 11:50 | W.PN.HOSP.TC ---
Today's Communication/Plan
-
completed abx
dc to snf
dc losartan
Assessment / Plan
Assessment / Plan
Sepsis - Hypotension/fever - POA
ESBL Ecoli and Enterococcus Faecalis UTI
-Patient diagnosed for UTI in long term,
-Urine culture report reviewed from long term, susceptibility reviewed of both organism
-Repeat urine culture/blood culture negative during this stay.
-CT abdomen pelvis with IV/oral contrast ordered to rule out any structural problems
-Maintain on IV Zosyn for now- Day 01/29. No appropriate po option available.
Generalized weakness
-PT/OT eval. back to SNF.
Essential hypertension and now with hypotension
-Reduce coreg 3.125mg daily. DC losartan
-Bp controlled
Congestive heart failure
-Type unknown, no previous echocardiogram in chart to compare with
-Clinically no signs of heart failure
-Lasix restarted
Hyponatremia
-presuming euvolemic, monitor. Na improved 134
Thrombocytopenia
-Likely with sepsis,
-monitor for now. Platelet normalized.
ZARA
-resolved
coronary disease
hypothyroidism
history of normal pressure hydrocephalus
history of overactive bladder
anxiety/depression
left hip arthroplasty
history of pacemaker placement
DVT PPX - lovenox
DNR/DNI
More than 30 minutes spent in discharge including
Final examination of the patient
Summarizing hospital stay
Instructions for continuing care to all relevant caregivers
Preparation of discharge records, prescriptions, and referral forms
Total time spent (in minutes): 55
Anticipated Discharge: Today
Subjective/Interval History
-
Date of Service: August 11, 2024
tolerating diet
BP stabilized
afebrile
Objective Data
-
Labs:
Laboratory Results
08/11/24
05:58
WBC 4.8
Hgb 12.1
Hct 36.0 L
Plt Count 173 D
Sodium 134 L
Potassium 3.7
Chloride 101
Carbon Dioxide 25
BUN 8
Creatinine 0.7
Glucose 85
Calcium 8.8
Vital Signs:
Vital Signs
Temp Pulse Resp BP Pulse Ox
97.7 F 65 18 134/80 98
08/11/24 08:17 08/11/24 11:35 08/11/24 11:35 08/11/24 11:35 08/11/24 11:35
I&O
08/10/24 08/11/24 08/12/24
06:59 06:59 06:59
Intake Total 720 / 720 1500 / 1500
Balance 720 / 720 1500 / 1500
Physical Exam
-
General: No Apparent Distress and Comfortable
HEENT: Negative Oxygen
Respiratory: Clear to Auscultation
Cardiac: Regular Rhythm and S1/S2; Negative Murmur or Rub
GI: Soft, Nontender, Nondistended and Normal Bowel Sounds
Musculoskeletal: No Edema
Neuro: Awake, Alert, Oriented, No Motor Deficits and Nonfocal/Grossly Intact
Psych: Calm
--- NOTE | 2024-08-11 11:54 | W.DCSUMMARY ---
Discharge Summary
Discharge Data
Date of Admission: 08/04/24
Date of Discharge: 08/11/24
-
Pending Results: No
Hospital Course
89-year-old female past medical history of hypertension, congestive heart failure, coronary artery disease, hypothyroidism, history of NPH, overactive bladder, anxiety, depression, history of pacemaker placement is presenting from residential with
sepsis. Patient had records from residential which showed patient has ESBL UTI and Enterococcus faecalis UTI. No appropriate oral option was available. Patient was started on IV Zosyn. CT abdomen pelvis with no significant acute abnormality
identified in the abdomen or pelvis. Mild constipation was noted. Patient was having bowel movements with bowel regimen. Patient remained afebrile. Blood pressure was soft and losartan was discontinued. Carvedilol dose was decreased. Patient
was eval by PT and OT. Patient completed course with antibiotics with Zosyn. Patient be discharged back to snf facility.
Discharge Plan
-
Patient Disposition: Penitentiary/SNF
Discharge Diagnosis/Procedures: Sepsis
ESBL Ecoli and Enterococcus Faecalis UTI
Weakness
Primary Hypertension with episode of hypotension
Hyponatremia
Thrombocytopenia
Acute kidney injury
Condition: Fair
Diet: 2 Gram Sodium and Restrict fluids to 48 oz
Activity: With assistance and As tolerated
Driving Restrictions: No driving
Referrals:
Paulie Hussein MD [Family Provider] - in less than 1 week
Additional Discharge Medication Instructions: Losartan was discontinued
Carvedilol dose was decreased to 3.125 mg
Prescriptions:
New
carvedilol 3.125 mg Tablet
3.125 mg PO DAILY 30 Days Qty: 30 0RF
Lactobac/Bifidobac [Visbiome]
2 cap PO DAILY 5 Days 0RF
Continued
multivitamin Tablet
1 tab PO DAILY
furosemide [Lasix] 40 mg Tablet
40 mg PO DAILY
acetaminophen [Tylenol] 325 mg Tablet
650 mg PO Q4HPRN PRN (Reason: mild pain/temp>100)
oxybutynin chloride 10 mg Tablet Extended Release 24hr
10 mg PO DAILY
magnesium hydroxide [Milk of Magnesia] 400 mg/5 mL Suspension
30 ml PO HSPRN PRN (Reason: if no bm in 3 days)
bisacodyl 10 mg Suppository
10 mg [place] DAILYPRN PRN (Reason: if no results for MOM)
bupropion HCl 75 mg Tablet
75 mg PO DAILY
aspirin 81 mg Tablet,Chewable
81 mg PO DAILY
folic acid 1 mg Tablet
1 mg PO DAILY
glucosamine-chondroitin 500-400 mg Tablet
1 tab PO DAILY
levothyroxine [Synthroid] 112 mcg Tablet
112 mcg PO DAILY
cyanocobalamin (vitamin B-12) 1,000 mcg/mL solution
1,000 mcg IM MONTHLY
Rx Instructions:
inject 1 dose IM monthly on the of each month
diclofenac sodium [Arthritis Pain (diclofenac)] 1 % Gel
2 g TOPICAL BID
Changed
polyethylene glycol 3350 [Miralax] 17 gram Powder In Packet
17 g PO DAILY PRN (Reason: Constipation) Qty: 0 0RF
Discontinued
sennosides [senna] 8.6 mg Tablet
17.2 mg PO DAILY
carvedilol [Coreg] 25 mg Tablet
25 mg PO DAILY
dextromethorphan-guaifenesin [Guaifenesin DM] 10-100 mg/5 mL Syrup
10 ml PO Q6HPRN PRN (Reason: cough)
sulfamethoxazole-trimethoprim [Bactrim DS] 800-160 mg Tablet
1 tab PO BID
Rx Instructions:
for uti until 08/06/24
losartan 25 mg Tablet
25 mg PO DAILY
Discharge Orders:
Discharge Patient (As Directed); Ordered 08/11/24
Ordered By: Edward Jeter
Discharge Date and Time
Print Language: SAMOAN
[2024-08-11 14:42] VITALS: BP 118/72
[2024-08-11] MEDS: CYANOCOBALAMIN 1000 MCG IM (14:52)
== END 2024-08-11 15:36 | DRG 872 ==
LOC: 3 WEST ACU 10:43
PROVIDERS: Physician Assistant; ADMITTING PHYSICIAN Hospitalist; ATTENDING PHYSICIAN Hospitalist; EMERGENCY PHYSICIAN Emergency Medicine; FAMILY PHYSICIAN Internal Medicine
DX: A41.9 Sepsis, unspecified organism (principal); N39.0 Urinary tract infection, site not specified; Z16.12 Extended spectrum beta lactamase (ESBL) resistance; E87.1 Hypo-osmolality and hyponatremia; N17.9 Acute kidney failure, unspecified; I11.0 Hypertensive heart disease with heart failure; I50.9 Heart failure, unspecified; D69.6 Thrombocytopenia, unspecified; E03.9 Hypothyroidism, unspecified; F41.9 Anxiety disorder, unspecified; F32.A Depression, unspecified; Z66 Do not resuscitate; Z96.642 Presence of left artificial hip joint; Z95.0 Presence of cardiac pacemaker; I95.9 Hypotension, unspecified; Z11.52 Encounter for screening for COVID-19; B95.2 Enterococcus as the cause of diseases classified elsewhere; K59.00 Constipation, unspecified; Z60.2 Problems related to living alone
CPT/HCPCS: 51701; 70450; 71046; 74177; 80048; 80053; 81003; 81015; 83605; 83880; 85025; 85027; 87040; 87070; 87086; 87147; 87502; 87811; 96361; 96374; 97166; 97530; 97535; 99285; Q9967